=== PATIENT | female | born 1945 | race Caucasian/White ===

== ENCOUNTER 2020-01-11 08:48 | Outpatient (CLI) | payer MEDICARE, SELFPAY ==
--- NOTE | 2020-01-11 08:55 | XR_ITS ---
WS: [id number] Bone mineral density performed on a Vadio IDXA, 01/11/2020 Clinical data: POST MENOPAUSAL Comparison: DEXA scan, 03/20/2013. Findings: The first 4 lumbar vertebral bodies demonstrated the bone mineral density of 0.903 g/cm2 for a young adult T score of -2.3. Measurement of the left hip reveals a bone mineral density of 0.862 g/cm2 with a young adult T score of -1.2. Measurement of the right hip reveals the bone mineral density of 0.842 g/cm2 for young adult T score of -1.3. XR/XR DEXA axial skeleton* [id number] Impression: 1. Osteopenia of the lumbar spine with slight decrease in bone mineral density compared to prior study. 2. Osteopenia of both hips with slight decrease in bone mineral density compare d to prior study.
== END 2020-01-11 08:49 | disposition home or self-care (01) ==
LOC: RADWPI 08:54
PROVIDERS: Family Provider Family Medicine; PCP Family Medicine; Visit Provider Family Medicine
DX: Z78.0 Asymptomatic menopausal state (principal); M85.88 Other specified disorders of bone density and structure, other site
CPT/HCPCS: 77080

== ENCOUNTER 2021-08-27 10:37 | Outpatient (CLI) | payer MEDICARE, SELFPAY ==
--- NOTE | 2021-08-27 10:48 | MM_ITS ---
WS: [id number] BILATERAL SCREENING DIGITAL BREAST TOMOSYNTHESIS MAMMOGRAM WITH CAD HISTORY: SCREENING COMPARISON: None available. Bilateral CC and MLO views with tomosynthesis and synthetic mammography submitted. Computer aided det ection analyzed. Breast composition: The breasts are heterogeneously dense, which may obscure small masses. No suspici ous masses, microcalcifications or architectural distortion. Benign coarse calcification lateral LEFT breast. MM/[id number] IMPRESSION: BI-RADS: 2-Benign FOLLOW UP: 1 Year Follow-up
== END 2021-08-27 10:38 | disposition home or self-care (01) ==
PROVIDERS: PCP Family Medicine; Visit Provider Family Medicine
DX: Z12.31 Encounter for screening mammogram for malignant neoplasm of breast (principal)
CPT/HCPCS: 77063; 77067

== ENCOUNTER 2022-10-21 08:55 | Outpatient (CLI) | payer MEDICARE, SELFPAY ==
--- NOTE | 2022-10-21 09:11 | MM_ITS ---
WS: [id number] Bilateral screening 3D tomosynthesis digital mammogram, 10/21/2022 Clinical Data: SCREENING Comparison: 08/27/2021 06/07/2018, 05/25/2017, 04/13/2016, 03/20/2013, 01/07/2009. Findings: The breast parenchymal pattern shows heterogeneous density. No spiculated masses or clustered calcifi cations are seen. There are no secondary signs of carcinoma. MM/[id number] Impression: 1. Negative bilateral mammogram unchanged. 2. Recommend annual screening mammograms. BIRADS: 1-Negative FOLLOW UP: 1 Year Follow-up The CAD process checker was used.
== END 2022-10-21 08:56 | disposition home or self-care (01) ==
LOC: RAD 09:00
PROVIDERS: PCP Family Medicine; Visit Provider Family Medicine
DX: Z12.31 Encounter for screening mammogram for malignant neoplasm of breast (principal)
CPT/HCPCS: 77063; 77067

== ENCOUNTER 2024-05-13 11:54 | Emergency (ER) | payer MEDICARE, SELFPAY ==
[2024-05-13 11:59] VITALS: BP 142/80; PULSE 99; RESP 14; TEMP 36.4; O2SAT 95; BMI 28.7
--- NOTE | 2024-05-13 13:01 | ED_ITS ---
HPI - Extremity Problem 2 General: Chief complaint: Extremity Problem,Nontraumatic Stated complaint: pain & numbness in pointer finger on lft hand Time Seen by Provider: 05/13/24 13:01 History of Present Illness: 78-year-old female comes in today with d iscoloration of the fingers of both hands. Patient's pointer finger of the left hand seems to be the worst. Patient reports for the last week she has had increasing discoloration with blurriness. Patient has had some numbness and tingling in the fingers also. Patient has some osteoarthritis history, and high cholesterol history. Patient does take statins daily. Patient denies any other routine medications. Patient had a brown recluse bite about 2 months ago. Patient did have a steroid shot on Tuesday in the right shoulder for some pain and concern for a bursitis. Patient appears healthy. Related Data Previous Rx's Medication Instructions Recorded aspirin 81 mg tablet,delayed 81 mg PO DAILY #30 tabs 05/13/24 release nifedipine 30 mg tablet,extended 30 mg PO DAILY #30 tabs 05/13/24 release Allergies Allergy/AdvReac Type Severity Reaction Status Date / Time codeine Allergy ADR-Vomitin Verified 05/13/24 12:04 g Review of Systems 2 General: Reports: 10 or more systems reviewed and unremarkable except in HPI and below Skin/Breast: Reports: other (Fingertip discoloration) Physical Exam 2 Const: COMMON NORMALS: alert HENMT: COMMON NORMALS: normocephalic HEAD & SCALP: normocephalic Neck/C-Spine: COMMON NORMALS: full ROM Resp: COMMON NORMALS: normal respiratory effort Cardio: COMMON NORMALS: regular rate RATE: regular rate GI: COMMON NORMALS: Soft to palpation PALPATION: Yes Soft to palpation Back/Pelvis: COMMON NORMALS: thoracic and lumbar spine normal to inspection Extremity: COMMON NORMALS: full ROM Neuro: SENSORIUM/ORIENTATION: Yes alert Skin: COMMON NORMALS: turgor normal GENERAL SKIN EXAM: turgor normal Course 2 Vital Signs: Vital signs: Vital Signs Temperature 97.6 F 05/13/24 11:59 Pulse Rate 99 05/13/24 11:59 Respiratory Rate 14 05/13/24 11:59 Blood Pressure 142/80 05/13/24 11:59 Pulse Oximetry 95 05/13/24 11:59 Oxygen Delivery Me thod Room Air 05/13/24 11:59 MDM - Extremity (Nontraumatic) Medical Decision Making 78-year-old female comes in today for some numbness and discoloration of the fingertips. Patient had first been seen at urgent care and they referred her to ER for possible ultrasound. On exam we note some discoloration to multiple fingers with the worst 1 being the left index finger. Patient appears nontoxic. Patient appears in no pain. Differential diagnosis includes but not limited to Buerger's disease, Raynaud's phenomenon, vasculitis. CBC was unremarkable. Sed rate was less than 3. CMP and CRP were unremarkable. Coagulation panel was normal. 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 Patient will be started on some nifedipine 30 mg extended release daily and a baby aspirin. 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 Recommended following up with rheumatology and primary care for further evaluation. Patient is agreeable to plan and recommendations. Lab Data 05/13/24 14:03 05/13/24 14:03 Laboratory Results WBC 9.68 10^3/uL (3.29-11.43) 05/13/24 14:03 RBC 4.76 10^6/uL (3.85-5.65) 05/13/24 14:03 Hgb 14.50 g/dL (11.27-16.99) 05/13/24 14:03 Hct 44.4 % (36-47) 05/13/24 14:03 MCV 93.3 fl (85-98) 05/13/24 14:03 MCH 30.5 pg (27-33) 05/13/24 14:03 MCHC 32.7 g/dL (30-55) 05/13/24 14:03 RDW 13.1 % (12.1-15.1) 05/13/24 14:03 Plt Count 212 10^3/cmm (157-399) 05/13/24 14:03 MPV 10.7 fL (7.4-10.4) H 05/13/24 14:03 Neut % (Auto) 79.3 % 05/13/24 14:03 Lymph % (Auto) 11.4 % 05/13/24 14:03 Cuming % (Auto) 7.1 % 05/13/24 14:03 Eos % (Auto) 1.2 % 05/13/24 14:03 Baso % (Auto) 0.6 % 05/13/24 14:03 Neut # (Auto) 7.67 10^3/uL (1.8-7.7) 05/13/24 14:03 Lymph # (Auto) 1.1 10^3/uL (0.8-4.8) 05/13/24 14:03 Cuming # (Auto) 0.7 10^3/uL (0.2-0.9) 05/13/24 14:03 Eos # (Auto) 0.1 10^3/uL (0.0-0.8) 05/13/24 14:03 Baso # (Auto) 0.1 10^3/uL (0.0-0.1) 05/13/24 14:03 Nucleated RBC % (auto) 0 % 05/13/24 14:03 Nucleated RBCs # 0.0 /100WBC 05/13/24 14:03 ESR 3 mm/hr (0-15) 05/13/24 14:03 PT 13.30 SECONDS (12.1-14.9) 05/13/24 14:03 INR 0.94 (0.8-1.2) 05/13/24 14:03 APTT 26.0 SECONDS (23.9-36.7) 05/13/24 14:03 Sodium 140 mmol/L (136-145) 05/13/24 14:03 Potassium 4.3 mmol/L (3.5-5.1) 05/13/24 14:03 Chloride 104 mmol/L (98-107) 05/13/24 14:03 Carbon Dioxide 25 mmol/L (22-29) 05/13/24 14:03 Anion Gap 15.3 (5-19) 05/13/24 14:03 BUN 22 mg/dL (8-23) 05/13/24 14:03 Creatinine 0.5 mg/dL (0.5-0.9) 05/13/24 14:03 GFR Calculation Not Reportable 05/13/24 14:03 Glucose 99 mg/dL (65-115) 05/13/24 14:03 Calculated Osmolality 293 mOsm/kg (285-295) 05/13/24 14:03 Calcium 8.8 mg/dL (8.5-10.5) 05/13/24 14:03 Total Bilirubin 1.7 mg/dL (0.15-1.2) H 05/13/24 14:03 AST 19 U/L (0-32) 05/13/24 14:03 ALT 14 U/L (0-33) 05/13/24 14:03 Alkaline Phosphatase 87 U/L (35-105) 05/13/24 14:03 C-Reactive Protein 18.9 mg/L (0.0-4.9) H 05/13/24 14:03 Total Protein 6.3 g/dL (6.6-8.7) L 05/13/24 14:03 Albumin 3.8 g/dL (3.5-5.2) 05/13/24 14:03 Globulin 2.5 g/dL (1.3-4.6) 05/13/24 14:03 TSH 3.51 uIU/mL (0.27-4.20) 05/13/24 14:03 No radiology studies performed this visit Discharge Plan Discharge Patient Disposition: Home Clinical Impression: Raynaud phenomenon Qualifiers: Raynaud?s-associated gangrene presence: without gangrene Qualified Code(s): I 73.00 - Raynaud's syndrome without gangrene Condition: Stable Prescriptions: New nifedipine 30 mg tablet extended release 30 mg PO DAILY Qty: 30 0RF aspirin 81 mg tablet,delayed release (DR/EC) 81 mg PO DAILY Qty: 30 0RF Discharge Orders: Discharge ED (Routine); Ordered 05/13/24 Ordered By: Josemanuel Cooper Referrals: Brodie Schmitz MD [Physician] - (call for appointment) Willi Olsen MD [Primary Care Provider] - Patient Instructions: Raynaud Disease (ED) Activity Restrictions/Additional Instructions: Follow-up with primary care in 3 to 5 days for recheck. Contact the cart driver office for appointment. Return to ED for new concerns such as redness, high fever, or ulcers of the tissue. Avoid lifting heavy objects or extreme cold of the fingers. Keep hands as warm as possible along with the rest of the body. Coding Level of Care Code ED Pipe Fitter Marine for Aria Fragoso
[2024-05-13 14:10] LABS: Basophils # 0.1 10^3/uL (0.0-0.1); Basophils % 0.6 %; Eosinophils # 0.1 10^3/uL (0.0-0.8); Eosinophils % 1.2 %; Hematocrit 44.4 % (36-47); Lymphocytes # 1.1 10^3/uL (0.8-4.8); Lymphocytes % 11.4 %; Mean Corpuscular HGB Conc 32.7 g/dL (30-55); Mean Corpuscular Hemoglobin 30.5 pg (27-33); Mean Corpuscular Volume 93.3 fl (85-98); Mean Platelet Volume 10.7 fL (7.4-10.4); Monocytes # 0.7 10^3/uL (0.2-0.9); Monocytes % 7.1 %; Neutrophils # 7.67 10^3/uL (1.8-7.7); Neutrophils % 79.3 %; Nucleated Red Blood Cells % 0 %; Platelet Count 212 10^3/cmm (157-399); Red Blood Count 4.76 10^6/uL (3.85-5.65); Red Cell Distribution Width 13.1 % (12.1-15.1); White Blood Count 9.68 10^3/uL (3.29-11.43)
[2024-05-13 14:17] LABS: Erythrocyte Sedimentation Rate 3 mm/hr (0-15)
[2024-05-13 14:19] LABS: INR 0.94 (0.8-1.2)
[2024-05-13 14:36] LABS: Alanine Aminotransferase 14 U/L (0-33); Albumin Level 3.8 g/dL (3.5-5.2); Alkaline Phosphatase 87 U/L (35-105); Anion Gap 15.3 (5-19); Aspartate Amino Transferase 19 U/L (0-32); Blood Urea Nitrogen 22 mg/dL (8-23); C Reactive Protein 18.9 mg/L (0.0-4.9); Calcium 8.8 mg/dL (8.5-10.5); Carbon Dioxide 25 mmol/L (22-29); Chloride 104 mmol/L (98-107); Creatinine Clr Calc Pharmacy 57.4532; Globulin 2.5 g/dL (1.3-4.6); Glucose 99 mg/dL (65-115); Osmolality Calculated 293 mOsm/kg (285-295); Potassium 4.3 mmol/L (3.5-5.1); Sodium 140 mmol/L (136-145); Thyroid Stimulating Hormone 3.51 uIU/mL (0.27-4.20); Total Bilirubin 1.7 mg/dL (0.15-1.2); Total Protein 6.3 g/dL (6.6-8.7)
[2024-05-13] MEDS: NIFEdipine ER (24 hr) 30 mg Tablet PO (15:18)
[2024-05-13] MEDS: aspirin 81 mg Chew Tablet PO (15:18)
[2024-05-13 15:22] VITALS: BP 128/80; PULSE 77; O2SAT 96
--- NOTE | 2024-05-14 07:35 | DCPLANNER ---
messaged rheumotology for er f/u
== END 2024-05-13 15:23 | disposition home or self-care (01) ==
PROVIDERS: Emergency Provider Nurse Practitioner Family; PCP Family Medicine
DX: I73.00 Raynaud's syndrome without gangrene (principal); Z79.82 Long term (current) use of aspirin
CPT/HCPCS: 36415; 80053; 84443; 85025; 85610; 85651; 85730; 86140; 99283

== ENCOUNTER 2024-05-31 14:43 | Inpatient (IN) | payer OTHER, SELFPAY ==
[2024-05-31] VITALS (19 sets, daily range): BP systolic 98–145; BP diastolic 62–85; PULSE 87–145; RESP 20–23; TEMP 36.6–37.7; O2SAT 85–95; BMI 28.3
--- NOTE | 2024-05-31 14:48 | ECG_ITS ---
[facility] Date: 2024-[facility]31 Pat Name: Cyndi Robin Department: Room: Gender: Female [employer] Agent: : 1945 Requested By: Radha Carver Order Number: [id number] Osei MD: Raleigh Khan M.D. Measurements Intervals [place] Rate: 137 P: 53 NV: 169 QRS: 9 QRSD: 81 T: 34 QT: 262 QTc: 396 Interpretive Statements SINUS TACHYCARDIA No previous ECG available for comparison Electronically Signed On 05-31-2024 17:49:38 RELIGIOUS EDUCATION DIRECTOR by Raleigh Khan M.D. [email or web address] [id number]
--- NOTE | 2024-05-31 14:48 | XR_ITS ---
WS: [id number] Exam: XR chest 1V portable [id number] Date/Time of Exam: 05/31/2024 3:00 PM Reason For Exam: Shortness of breath No priors. Bilateral perihilar infiltrates in the medial lung zones. There is also probably infiltrate in the LEFT lower lobe in the retrocardiac region. The lungs are fully inflated. No pleural effusions. Normal bony structures. The mediastinum is normal in contour. Normal heart size. XR/XR chest 1V portable [id number] IMPRESSION: 1. Bilateral perihilar and LEFT lower lobe infiltrates noted. These changes cou ld be chronic or represent pneumonia or pulmonary edema. No comparison studies.
--- NOTE | 2024-05-31 14:55 | W.ED.SOB ---
HPI - SOB/Dyspnea General: Chief Complaint: Shortness of Breath/Dyspnea Stated Complaint: flu like symptoms, SOB Time Seen by Provider: 05/31/24 14:44 History of Present Illness: HPI Narrative: 78-year-old female with a history of hyperlipidemia and recently diagnosed with flu and pneumonia who presents emergency room with worsening cough and shortness of breath. Her was going to take her to the emergency room but they ended up calling ambulance because she was too short of breath to get to the car. EMS reports O2 sats in the low 80s on their presentation but she does have Raynaud's. She is a bit tachycardic on presentation. Related Data Home Medications ?Medication ?Instructions ?Recorded ?Confirmed amoxicillin 875 mg-potassium 1 tab PO Q12H 05/31/24 05/31/24 clavulanate 125 mg tablet atorvastatin 10 mg tablet 10 mg PO DAILY 05/31/24 05/31/24 benzonatate 100 mg capsule 100 mg PO TID 05/31/24 05/31/24 Previous Rx's ?Medication ?Instructions ?Recorded aspirin 81 mg tablet,delayed 81 mg PO DAILY #30 tabs 05/13/24 release nifedipine 30 mg tablet,extended 30 mg PO DAILY #30 tabs 05/13/24 release Allergies Allergy/AdvReac Type Severity Reaction Status Date / Time codeine Allergy ADR-Vomitin Verified 05/31/24 15:01 g Review of Systems Narrative: Constitutional symptoms: Negative except as documented in HPI. Skin symptoms: Negative except as documented in HPI. Eye symptoms: Negative except as documented in HPI. ENMT symptoms: Negative except as documented in HPI. Respiratory symptoms: Negative except as documented in HPI. Cardiovascular symptoms: Negative except as documented in HPI. Gastrointestinal symptoms: Negative except as documented in HPI. Genitourinary symptoms: Negative except as documented in HPI. Musculoskeletal symptoms: Negative except as documented in HPI. Neurologic symptoms: Negative except as documented in HPI. Psychiatric symptoms: Negative except as documented in HPI. Endocrine symptoms: Negative except as documented in HPI. [facility] ED PFSH: Medical History Raynaud's disease History of hypertension Social History (Updated 05/31/24 @ 17:33 by Hermann Santoyo MD) Smoking and tobacco/nicotine status: never used tobacco/nicotine Alcohol intake: never Substance/Drug Use: never Physical Exam Narrative: EXAM NARRATIVE: General: Alert, no acute distress. Skin: Warm, dry. Head: Normocephalic, bruising which appears quite old around the right eye. Yellowing.. Neck: Supple, trachea midline. Eye: Extraocular movements are intact. Ears, nose, mouth and throat: Tacky oral mucosa Cardiovascular: Regular, tachycardic, normal peripheral perfusion. Respiratory: Mild increased work of breathing, mild tachypnea. No obvious wheezing. Gastrointestinal: Soft, Nontender, Non distended Musculoskeletal: Normal ROM, no deformity. Neurological: Alert and oriented, No focal neurological deficit observed. Psychiatric: Cooperative, appropriate mood & affect. Course Vital Signs: Vital signs: Vital Signs Temperature 99.8 F H 05/31/24 14:57 Pulse Rate 114 H 05/31/24 18:00 Respiratory Rate 20 H 05/31/24 14:57 Blood Pressure 113/72 05/31/24 18:00 Pulse Oximetry 94 05/31/24 18:00 Oxygen Delivery Me thod Nasal Cannula 05/31/24 18:00 Oxygen Flow Rate 2 05/31/24 18:00 MDM - SOB/Dyspnea Medical Decision Making Differential diagnosis for patient with shortness of breath includes but is not limited to and based on the above HPI, review of systems and physical exam: Pneumonia. Bronchitis. Asthma or COPD with acute exacerbation. Acute coronary syndrome / CT. Pulmonary embolism. Anxiety. Congestive heart failure. Viral infections including influenza and Covid-19. Atrial fibrillation. Anxiety. Pleural effusion. Pneumothorax. Orders placed to evaluate differential diagnosis based on the above differential, HPI and physical exam EKG: Time 1458. Rate 137. Sinus tachycardia, No ST-T changes, no ectopy, normal DE & QRS intervals, This was reviewed and interpreted by myself the ER physician at 1502. Chest x-ray: Bilateral perihilar and left lower lobe infiltrates. This is likely a pneumonia which this far out from flu is likely a secondary bacterial pneumonia. This was reviewed and interpreted by myself the emergency room physician. I also reviewed the radiology report. Lab Review: Laboratory results were reviewed and interpreted by myself the emergency room physician. Mild leukocytosis white count of almost 13,000. No anemia. No renal failure. Although her BUN is slightly elevated. Initial troponin is mildly elevated proBNP is negative. I reviewed the patient's medical record. Reexamination: Patient continues to require a couple liters nasal cannula. O2 sats are in the low 90s on this. Heart rate is come down somewhat. No altered mental status. No focal motor deficits. Consultation: I spoke with Dr. Santoyo who is on-call for the hospitalist service who agrees to admission. Assessment and plan: Pneumonia Sepsis Tachycardia Dehydration Fever -2 L normal saline bolus. Fluid volumes based on ideal body weight. -Broad-spectrum antibiotics were administered. -Sepsis quality measures. -Lactic acid with a reflex was ordered. -Blood cultures were ordered. -I discussed the patient with the hospitalist on-call who is admitting the patient. - Discussed findings and plan with patient. Answered any questions. - All laboratory values were reviewed and interpreted personally by myself, the ER physician - All imaging was reviewed and interpreted personally by myself, the ER physician. - Evaluation and treatment of this problem were appropriate in the emergency setting Critical care -I spent a total of >35 minutes of critical care time managing the patient, independent of any other practitioner. -The time involved in the performance of separately reportable procedures was not counted towards critical care time. Lab Data 05/31/24 15:16 05/31/24 15:16 Labs/Radiology: Radiology Impressions Chest X-Ray 05/31/24 14:48 IMPRESSION: 1. Bilateral perihilar and LEFT lower lobe infiltrates noted. These changes could be chronic or represent pneumonia or pulmonary edema. No comparison studies. Chest CTA 05/31/24 16:56 IMPRESSION: 1. No pulmonary emboli. 2. Patchy peripheral consolidations throughout both lungs with a lower lobe predominance which while nonspecific can be seen in the setting of viral infection. Laboratory Results WBC 12.68 10^3/uL (3.29-11.43) H 05/31/24 15:16 RBC 4.56 10^6/uL (3.85-5.65) 05/31/24 15:16 Hgb 13.70 g/dL (11.27-16.99) 05/31/24 15:16 Hct 43.6 % (36-47) 05/31/24 15:16 MCV 95.6 fl (85-98) 05/31/24 15:16 MCH 30.0 pg (27-33) 05/31/24 15:16 MCHC 31.4 g/dL (30-55) 05/31/24 15:16 RDW 13.5 % (12.1-15.1) 05/31/24 15:16 Plt Count 343 10^3/cmm (157-399) 05/31/24 15:16 MPV 10.0 fL (7.4-10.4) 05/31/24 15:16 Neut % (Auto) 80.7 % 05/31/24 15:16 Lymph % (Auto) 8.5 % 05/31/24 15:16 Charles % (Auto) 8.4 % 05/31/24 15:16 Eos % (Auto) 0.3 % 05/31/24 15:16 Baso % (Auto) 0.4 % 05/31/24 15:16 Neut # (Auto) 10.23 10^3/uL (1.8-7.7) H 05/31/24 15:16 Lymph # (Auto) 1.1 10^3/uL (0.8-4.8) 05/31/24 15:16 Charles # (Auto) 1.1 10^3/uL (0.2-0.9) H 05/31/24 15:16 Eos # (Auto) 0.0 10^3/uL (0.0-0.8) 05/31/24 15:16 Baso # (Auto) 0.1 10^3/uL (0.0-0.1) 05/31/24 15:16 Nucleated RBC % (auto) 0 % 05/31/24 15:16 Nucleated RBCs # 0.0 /100WBC 05/31/24 15:16 Specimen Type Arterial 05/31/24 15:02 Sample Site Radial, right 05/31/24 15:02 ABG pH 7.47 (7.35-7.45) H 05/31/24 15:02 ABG pCO2 34.4 mmHg (35-45) L 05/31/24 15:02 ABG pO2 49.7 mmHg (80.0-100.0) L 05/31/24 15:02 ABG PO2/FiO2 Ratio 207 05/31/24 15:02 ABG HCO3 25.1 mmol/L (22-26) 05/31/24 15:02 ABG O2 Saturation 86.4 05/31/24 15:02 ABG Base Excess 1.9 mmol/L (-2.0-2.0) 05/31/24 15:02 Wilber Test Pos 05/31/24 15:02 A-a O2 Gradient 10.6 mmHg (5-10) H 05/31/24 15:02 Hematocrit 41.4 % (37-47) 05/31/24 15:02 Hgb O2 Saturation 84.3 % (95-100) L 05/31/24 15:02 Carboxyhemoglobin 1.5 %THgb (0.4-20.1) 05/31/24 15:02 Methemoglobin 0.9 % (0.4-1.5) 05/31/24 15:02 Total Hemoglobin 13.5 g/dL (12-16) 05/31/24 15:02 Sodium 136.0 mmol/L (131-143) 05/31/24 15:02 Potassium 3.7 mmol/L (3.5-5.0) 05/31/24 15:02 Glucose 135.0 mg/dL (70-115) H 05/31/24 15:02 Ionized Calcium 1.2 mmol/L (1.1-1.4) 05/31/24 15:02 O2 Delivery Device Nc 05/31/24 15:02 O2 Liters/Min 1.0 % 05/31/24 15:02 FiO2 24.0 % 05/31/24 15:02 Packer And Carry Out ID Anonymous 05/31/24 15:02 Sodium 139 mmol/L (136-145) 05/31/24 15:16 Potassium 4.2 mmol/L (3.5-5.1) 05/31/24 15:16 Chloride 101 mmol/L (98-107) 05/31/24 15:16 Carbon Dioxide 25 mmol/L (22-29) 05/31/24 15:16 Anion Gap 17.2 (5-19) 05/31/24 15:16 BUN 19 mg/dL (8-23) 05/31/24 15:16 Creatinine 0.5 mg/dL (0.5-0.9) 05/31/24 15:16 GFR Calculation Not Reportable 05/31/24 15:16 Glucose 125 mg/dL (65-115) H 05/31/24 15:16 Calculated Osmolality 292 mOsm/kg (285-295) 05/31/24 15:16 Lactic Acid 2.5 mmol/L (0.5-2.2) H 05/31/24 15:16 Calcium 8.4 mg/dL (8.5-10.5) L 05/31/24 15:16 Total Bilirubin 1.1 mg/dL (0.15-1.2) 05/31/24 15:16 AST 145 U/L (0-32) H 05/31/24 15:16 ALT 130 U/L (0-33) H 05/31/24 15:16 Alkaline Phosphatase 165 U/L (35-105) H 05/31/24 15:16 Troponin T Baseline 35 ng/L (0-10) H 05/31/24 15:16 C-Reactive Protein 122.3 mg/L (0.0-4.9) H 05/31/24 15:16 NT-Pro-B Natriuret Pep 112 pg/mL (0-450) 05/31/24 15:16 Total Protein 5.9 g/dL (6.6-8.7) L 05/31/24 15:16 Albumin 3.2 g/dL (3.5-5.2) L 05/31/24 15:16 Globulin 2.7 g/dL (1.3-4.6) 05/31/24 15:16 Procalcitonin 0.10 ng/mL (0-0.5) 05/31/24 15:16 TSH 5.21 uIU/mL (0.27-4.20) H 05/31/24 15:16 All radiology interpretation(s) finalized by discharge Discharge Plan Discharge Patient Disposition: Admitted As Inpatient Clinical Impression: Pneumonia, Sepsis, Hypoxemia, Dehydration Condition: Stable Coding Level of Care Code ED Hot Car Charger for Aria Fragoso
[2024-05-31 15:14] LABS: ABG PCO2 34.4 mmHg (35-45); ABG PH Result 7.47 (7.35-7.45); Alveolar-Arterial Oxygen Gradi 10.6 mmHg (5-10); Arterial Blood Gas Hematocrit 41.4 % (37-47); Base Excess ABG 1.9 mmol/L (-2.0-2.0); Blood Gas Allen Test Pos; Blood Gas Operator Identificat Anonymous; Blood Gas Sample Site Radial, right; Blood Gas Sample Type Arterial; Carboxyhemoglobin 1.5 %THgb (0.4-20.1); HCO3 ABG 25.1 mmol/L (22-26); HGB O2 Sat 84.3 % (95-100); Ionized Calcium Level - ABG 1.2 mmol/L (1.1-1.4); Methemoglobin 0.9 % (0.4-1.5); Oxygen Device NC; Oxygen Saturation ABG 86.4; PO2 ABG 49.7 mmHg (80.0-100.0); PO2 FiO2 Ratio Arterial Blood 207; Potassium Level - ABG 3.7 mmol/L (3.5-5.0); Total Hemoglobin 13.5 g/dL (12-16)
[2024-05-31] MEDS: acetaminophen 1,000 MG/100 ML PIGGYBACK 400 MG IV (15:28)
[2024-05-31 15:49] LABS: Basophils # 0.1 10^3/uL (0.0-0.1); Basophils % 0.4 %; Eosinophils % 0.3 %; Hematocrit 43.6 % (36-47); Lymphocytes # 1.1 10^3/uL (0.8-4.8); Lymphocytes % 8.5 %; Mean Corpuscular HGB Conc 31.4 g/dL (30-55); Mean Corpuscular Volume 95.6 fl (85-98); Monocytes # 1.1 10^3/uL (0.2-0.9); Monocytes % 8.4 %; Neutrophils # 10.23 10^3/uL (1.8-7.7); Neutrophils % 80.7 %; Nucleated Red Blood Cells % 0 %; Platelet Count 343 10^3/cmm (157-399); Red Blood Count 4.56 10^6/uL (3.85-5.65); Red Cell Distribution Width 13.5 % (12.1-15.1); White Blood Count 12.68 10^3/uL (3.29-11.43)
[2024-05-31 16:03] LABS: Lactic Sepsis W/Reflex 2.5 mmol/L (0.5-2.2)
[2024-05-31 16:05] LABS: Troponin(5th) Baseline 35 ng/L (0-10)
[2024-05-31 16:16] LABS: NT Pro B Type Natriuretic Pept 112 pg/mL (0-450); Thyroid Stimulating Hormone 5.21 uIU/mL (0.27-4.20)
[2024-05-31 16:27] LABS: Alanine Aminotransferase 130 U/L (0-33); Albumin Level 3.2 g/dL (3.5-5.2); Alkaline Phosphatase 165 U/L (35-105); Anion Gap 17.2 (5-19); Aspartate Amino Transferase 145 U/L (0-32); Blood Urea Nitrogen 19 mg/dL (8-23); C Reactive Protein 122.3 mg/L (0.0-4.9); Calcium 8.4 mg/dL (8.5-10.5); Carbon Dioxide 25 mmol/L (22-29); Chloride 101 mmol/L (98-107); Creatinine Clr Calc Pharmacy 57.9674; Globulin 2.7 g/dL (1.3-4.6); Glucose 125 mg/dL (65-115); Osmolality Calculated 292 mOsm/kg (285-295); Potassium 4.2 mmol/L (3.5-5.1); Sodium 139 mmol/L (136-145); Total Bilirubin 1.1 mg/dL (0.15-1.2); Total Protein 5.9 g/dL (6.6-8.7)
--- NOTE | 2024-05-31 16:48 | ECG_ITS ---
[facility] Date: 2024-[facility]31 Pat Name: Cyndi Robin Department: Room: Gender: Female [employer] Insurance Agent: : 1945 Requested By: Radha Carver Order Number: [id number] Osei MD: XOCHITL RIDDLE Measurements Intervals [place] Rate: 112 P: 51 LA: 175 QRS: 6 QRSD: 86 T: 15 QT: 304 QTc: 417 Interpretive Statements SINUS TACHYCARDIA MODERATE VOLTAGE CRITERIA FOR LVH, CONSIDER NORMAL VARIANT [MEETS CRITERIA IN ONE OF: R(aVL), S(V1), R(V5), R(V5/V6)+S(V1)] ABNORMAL RHYTHM ECG Compared to ECG 05/31/2024 14:58:50 No significant changes Electronically Signed On 06-05-2024 23:54:39 SACK REPAIRER by XOCHITL RIDDLE [email or web address] [id number]
--- NOTE | 2024-05-31 16:56 | CTR_ITS ---
PROCEDURE INFORMATION: Exam: CTA Chest With Contrast Exam date and time: 05/31/2024 5:14 PM Age: 78 years old Clinical indication: Shortness of breath; Additional info: SOB TECHNIQUE: Imaging protocol: Computed tomographic angiography of the chest with contrast. Exam focused on the arteries. 3D rendering (Not supervised by radiologist): MIP and/or 3D reconstructed images were created by the technologist. Radiation optimization: All CT scans at this facility use at least one of these dose optimization techniques: automated exposure control; mA and/or kV adjustment per patient size (includes targeted exams where dose is matched to clinical indication); or iterative reconstruction. Contrast material: OMNI 350; Contrast volume: 62 ml; Contrast route: INTRAVENOUS (IV); COMPARISON: CR XR chest 1V portable [id number] 05/31/2024 3:35 PM RADIATION DOSE METRICS: Total DLP (mGy-cm): 246.96 FINDINGS: Pulmonary arteries: No pulmonary emboli. Aorta: Unremarkable. No aortic aneurysm. No aortic dissection. Lungs: Patchy peripheral consolidations throughout both lungs with a lower lobe predominance which while nonspecific can be seen in the setting of viral infection. Pleural spaces: Unremarkable. No pneumothorax. No pleural effusion. Heart: Unremarkable. No cardiomegaly. No pericardial effusion. Lymph nodes: Unremarkable. No enlarged lymph nodes. Gallbladder and biliary ducts: The gallbladder is absent. Bones/joints: Unremarkable. No acute fracture. Soft tissues: Unremarkable. CT/CT angio chest PE protcl [id number] IMPRESSION: 1. No pulmonary emboli. 2. Patchy peripheral consolidations throughout both lungs with a lower lobe predominance which while nonspecific can be seen in the setting of viral infection.
--- NOTE | 2024-05-31 17:26 | USCV_ITS ---
Cyndi Robin Age: 78 Gender: F : 1945 Exam Date: 05/31/2024 18:43 Ordering Phys: Hermann Santoyo MD Technologist: MIRELLA Exam Location: [facility] [place] Indication: sob BP: 136 / 77 HR: 101 Rhythm: Atrial fibrillation Technical Quality: Adequate MEASUREMENTS (Male / Female) Normal Values 2D ECHO LV Diastolic Diameter PLAX 3.9 cm 4.2 - 5.9 / 3.9 - 5.3 cm IVS Diastolic Thickness 1.1 cm 0.6 - 1.0 / 0.6 - 0.9 cm IVS Systolic Thickness 1.9 cm LVPW Diastolic Thickness 1.0 cm 0.6 - 1.0 / 0.6 - 0.9 cm LVPW Systolic Thickness 1.8 cm LVOT Diameter 1.8 cm LV Ejection Fraction 2D Teich 64.8 % LV Ejection Fraction MOD 4C 57.8 % LV Ejection Fraction MOD 2C 69.6 % LV Ejection Fraction 2C AL 74.0 % LA Diameter 3.9 cm Aorta at Sinotubular Diameter 2.3 cm IVC Diameter 1.7 cm M-MODE LA Ao Ratio MM 1.5 AV Cusp Separation MM 2.0 cm DOPPLER AV Peak Velocity 125.0 cm/s LVOT Peak Velocity 85.0 cm/s AV Area Cont Eq vti 1.8 cm squared AV Area Cont Eq pk 1.8 cm squared MV Peak Velocity 161.0 cm/s MV Area PHT 8.8 cm squared Mitral E to A Ratio 0.0 TR Peak Velocity 280.0 cm/s TR Peak Gradient 31.4 mmHg TV Peak E Velocity 85.0 cm/s PV Peak Velocity 92.0 cm/s FINDINGS Left Ventricle Left ventricle is normal in size. LV systolic function is normal with EF of 55-60%. No regional wall motion abnormalities are seen Right Ventricle Normal in size and function Right Atrium Normal in size Left Atrium Normal in size Mitral Valve Structurally normal mitral valve. Mild mitral regurgitation. Aortic Valve Aortic valve is thickened. No significant stenosis or regurgitation. Tricuspid Valve Mild tricuspid regurgitation. RVSP is 35-40mmHg. Mild pulmonary hypertension Pulmonic Valve Not well visualized Pericardium Normal Aorta Normal in size IVC Appears to be normal CONCLUSIONS LV systolic function is normal with EF of 55-60% Mild mitral regurgitation Mild tricuspid regurgitation Mild pulmonary hypertension No comparison studies are available. Raleigh Khan MD (Electronically Signed) Final Date: 02 June 2024 15:03 S
--- NOTE | 2024-05-31 17:29 | PM.HP ---
Providers/Chief Complaint Primary Care Provider: Willi Olsen MD Chief Complaint: flu like symptoms, SOB History of Present Illness Cyndi Robin is a 78 year old female with a past medical history of hypertension, Raynaud's phenomenon who presents [facility] due to weakness, fatigue, nausea, vomiting, diarrhea, shortness of breath, cough. Currently patient alert oriented x 3, following commands, she lives in a splint she lives with her family for the last week she has had a flulike illness, with fevers, cough, chills, fatigue, malaise, diarrhea, nausea. She saw urgent care she was diagnosed with the flu but not started on any treatment presumably as she was out of the window for treatment, started on antibiotics for possible pneumonia given cough medication. However symptomatology persisted with persistent cough, shortness of breath fatigue, malaise fevers and chills. Denies any dysuria, hematuria, no flank pain, does report lightheadedness and dizziness. She reports 2 episodes of feeling dizzy 1 episode in which she syncopized, she felt dizzy and she fell hitting her head against the ground, she has bruising around the right orbit, she does tell me that she passed out during this episode Review of Systems Const: Denies: fever(s) or chills Eyes: Denies: change in vision Card: Denies: chest pain Resp: Reports: dyspnea and non-productive cough GI: Denies: abdominal pain Neuro: Denies: headache(s), numbness in extremities or weakness in extremities Medications/Allergies Home Medications ?Medication ?Instructions ?Recorded ?Confirmed ?Last Taken ?Type aspirin 81 mg tablet,delayed 81 mg PO DAILY #30 tabs 05/13/24 05/31/24 Unknown Rx release nifedipine 30 mg tablet,extended 30 mg PO DAILY #30 tabs 05/13/24 05/31/24 Unknown Rx release amoxicillin 875 mg-potassium 1 tab PO Q12H 05/31/24 05/31/24 Unknown History clavulanate 125 mg tablet atorvastatin 10 mg tablet 10 mg PO DAILY 05/31/24 05/31/24 Unknown History benzonatate 100 mg capsule 100 mg PO TID 05/31/24 05/31/24 Unknown History Allergies Allergy/AdvReac Type Severity Reaction Status Date / Time codeine Allergy ADR-Vomitin Verified 05/31/24 15:01 g PFSH Acute PFSH: Medical History Raynaud's disease History of hypertension Social History (Updated 05/31/24 @ 17:33 by Hermann Santoyo MD) Smoking and tobacco/nicotine status: never used tobacco/nicotine Alcohol intake: never Substance/Drug Use: never Vitals/I&O/Wt Last Vital Signs Temp 99.8 F H 05/31/24 14:57 Pulse 127 H 05/31/24 15:31 Resp 20 H 05/31/24 14:57 BP 121/78 05/31/24 15:31 Pulse Ox 93 05/31/24 15:31 O2 Del Method Room Air 05/31/24 15:31 05/31/24 05/31/24 05/31/24 06:59 14:59 22:59 Intake Total 0 / 0 Balance 0 / 0 Weight last 48 hrs Weight 74.843 kg Physical Exam Const: COMMON NORMALS: no acute distress and patient oriented x3 HENMT: COMMON NORMALS: normocephalic HEAD & SCALP: normocephalic Eye: COMMON NORMALS: Equal, round and reactive pupils present and EOMs intact bilaterally OTHER: Right eye bruising of orbital Neck/C-Spine: COMMON NORMALS: no JVD Resp: COMMON NORMALS: normal respiratory effort, No retractions, No use of accessory muscles and clear to auscultation bilaterally AUSCULTATION: crackles and wheezes Cardio: COMMON NORMALS: no JVD, regular rate, regular rhythm, S1 normal heart sound present and S2 normal heart sound present RATE: regular rate RHYTHM: regular rhythm HEART SOUNDS: S1 normal heart sound present and S2 normal heart sound present GI: COMMON NORMALS: Normal to inspection, nondistended, normoactive bowel sounds present, Soft to palpation and non-tender Extremity: COMMON NORMALS: no calf tenderness and no pedal edema Neuro: COMMON NORMALS: patient oriented x3, CN's II-XII intact bilaterally and moves all extremities Psych: COMMON NORMALS: mental status grossly normal Sepsis: Is patient septic: Yes Focused sepsis exam performed: Yes Focused sepsis exam: cap refill greater than 2 seconds, no mottling, no skin changes, no cooling Date exam was performed: 02/20/25 Time exam was performed: 17:34 Data 05/31/24 15:16 05/31/24 15:16 Micro: Microbiology 05/31/24 15:21 Blood Culture - Preliminary Blood SPECIMEN COLLECTED 05/31/24 15:16 Blood Culture - Preliminary Blood SPECIMEN COLLECTED A&P Assessment and plan (1) Pneumonia: (2) Hypoxemia: (3) Sepsis: (4) Acute hypoxic respiratory failure: (5) Transaminitis: Plan Acute hypoxic respiratory failure -Secondary to pneumonia -With sepsis, sepsis features met given tachycardia, febrile, elevated lactic acid -With transaminitis Plan -Admit to ICU -Receiving septic bolus in the ER -Meropenem -Zyvox -Blood cultures -Respiratory eval, -CT angiogram the chest -DuoNeb -Full code -Lovenox for DVT prophylaxis Syncopal episode -CT head -Carotid artery ultrasound -Cardiac echo -Telemetry monitoring Transaminitis, monitor LFTs, acute hep panel Sepsis secondary to pneumonia as above PDMP PDMP Reviewed: Not Reviewed Attestations Medical Necessity Statement*: Patient requires hospitalization, inpatient, greater than 2 midnights for acute hypoxic respiratory failure secondary to pneumonia, sepsis Diagnoses Pneumonia J18.9 Hypoxemia R09.02 Sepsis A41.9 Acute hypoxic respiratory failure J96.01 Transaminitis R74.01
[2024-05-31 17:30] LABS: Reflex Lactate Order REFLEX LACTIC ORDERD
--- NOTE | 2024-05-31 17:31 | USR_ITS ---
PROCEDURE INFORMATION: Exam: US Duplex Bilateral Extracranial Arteries; Complete; Carotid Arteries Exam date and time: 05/31/2024 5:42 PM Age: 78 years old Clinical indication: Syncope and collapse TECHNIQUE: Imaging protocol: Real-time duplex ultrasound scan of the bilateral extracranial arteries combining white scale, color Doppler and spectral waveform analysis with image documentation. Complete exam. Exam focused on the carotid arteries. Total images: 1003 COMPARISON: CT angio chest PE protcl [id number] 05/31/2024 5:14 PM FINDINGS: Doppler ultrasound velocity measurements are given this peak systolic velocity, and diastolic velocity, in cm/s: Right common carotid artery: 106, 30 Right internal carotid artery: 76, 23 Right ICA/CCA ratio: 0.7 Right external carotid artery: 77, 10 Right vertebral artery: Antegrade. A small amount of plaque identified in the proximal right internal carotid artery. Left common carotid artery: 78, 22 Left internal carotid artery: 64, 20 Left ICA/CCA ratio: 0.8 Left external carotid artery: 84, 9 Left vertebral artery: Antegrade. Small amount of plaque identified in the distal left common carotid artery. Also noted, but incompletely assessed a left thyroid nodule of estimated 1.6 cm size recommend follow-up with thyroid ultrasound. US/CV carotid duplex BI* [id number] IMPRESSION: 1. Less than 50% stenosis identified in the right internal carotid artery. 2. Less than 50% stenosis in the left internal carotid artery. 3. Bilateral antegrade flow in the bilateral vertebral arteries. 4. Suspected 1.6 cm left thyroid nodule recommend follow-up with non emergent thyroid ultrasound. REFERENCES: SRU CRITERIA. The degree of internal carotid artery stenosis is based on criteria defined by the Society of Radiologists in Ultrasound (SRU). Normal is no stenosis. Mild is less than 50% stenosis. Moderate is 50-69% stenosis. Severe is greater than 69% stenosis to near occlusion. Near occlusion is a markedly narrowed lumen. Total occlusion is no detectable patent lumen.
[2024-05-31] MEDS: iohexol 350 mg/mL 500 mL Btl (per mL) IV (17:38)
--- NOTE | 2024-05-31 18:05 | PC.NURSE ---
PT placed on 2L NC to maintain o2 sats. Dr. Chan.
[2024-05-31] MEDS: sodium chloride 0.9% 1,000 ML 999 ML IV ×2 (18:15→18:29)
[2024-05-31] MEDS: meropenem 500 mg SDV IVP (18:18)
[2024-05-31] MEDS: linezolid premix 600 MG/300 ML PREMIX 300 MG IV (18:23)
[2024-05-31 18:30] LABS: D Dimer 5.33 ug/mLFEU (0-0.59)
[2024-05-31 18:58] LABS: Lactic Acid level (Lactate) 1.6 mmol/L (0.5-2.2)
[2024-05-31 18:59] LABS: Troponin 5 2HR 28.08 ng/L (0-10); Troponin 5 2HR Delta -6.92 ABS# (0-10)
[2024-05-31 19:17] LABS: Influenza A NEGATIVE (Negative); Influenza B NEGATIVE (Negative); Respiratory Syncytial Virus Ce NEGATIVE (Negative); SARS-CoV-2 PCR NEGATIVE (Negative)
[2024-05-31 19:28] LABS: C Reactive Protein 109.9 mg/L (0.0-4.9)
[2024-05-31 20:29] LABS: Estmated Average Glucose 117; Hemoglobin A1C 5.7 % (4.0-6.0)
--- NOTE | 2024-05-31 20:48 | ECG_ITS ---
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1945 Requested By: Radha Carver Order Number: [id number] Osei MD: XOCHITL RIDDLE Measurements Intervals [place] Rate: 96 P: 42 CT: 222 QRS: 1 QRSD: 89 T: 18 QT: 337 QTc: 426 Interpretive Statements SINUS RHYTHM WITH FIRST DEGREE AV BLOCK MODERATE VOLTAGE CRITERIA FOR LVH, CONSIDER NORMAL VARIANT [MEETS CRITERIA IN ONE OF: R(aVL), S(V1), R(V5), R(V5/V6)+S(V1)] Compared to ECG 05/31/2024 16:54:29 First degree AV block now present Sinus tachycardia no longer present Electronically Signed On 06-05-2024 23:54:16 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
[2024-05-31 21:36] LABS: Troponin 5 6HR 26.29 ng/L (0-10)
[2024-05-31 21:38] LABS: Troponin 5 6HR Delta -8.71 ng/L (0-12)
[2024-05-31] MEDS: pantoprazole 40 mg SDV IVP (22:01)
--- NOTE | 2024-05-31 23:30 | CTR_ITS ---
PROCEDURE INFORMATION: Exam: CT Head Without Contrast Exam date and time: 05/31/2024 11:56 PM Age: 78 years old Clinical indication: Injury or trauma; Fall; Blunt trauma (contusions or hematomas) TECHNIQUE: Imaging protocol: Computed tomography of the head without contrast. Radiation optimization: All CT scans at this facility use at least one of these dose optimization techniques: automated exposure control; mA and/or kV adjustment per patient size (includes targeted exams where dose is matched to clinical indication); or iterative reconstruction. COMPARISON: US CV carotid duplex BI* [id number] 05/31/2024 5:42 PM RADIATION DOSE METRICS: Total DLP (mGy-cm): 1088.68 FINDINGS: Brain: No acute intracranial abnormality. Subcortical and periventricular white matter changes consistent with small-vessel ischemic disease in the appropriate clinical setting. Small-vessel ischemic disease. Cerebral ventricles: No ventriculomegaly. Paranasal sinuses: Visualized sinuses are unremarkable. No fluid levels. Mastoid air cells: Visualized mastoid air cells are well aerated. Bones: Unremarkable. No acute fracture. Soft tissues: Unremarkable. CT/CT head wo con* [id number] IMPRESSION: 1. No acute intracranial abnormality. 2. Small-vessel ischemic disease.
[2024-06-01] VITALS (31 sets, daily range): BP systolic 115–160; BP diastolic 66–100; PULSE 78–127; RESP 16–29; TEMP 36.4–37.1; O2SAT 89–96
[2024-06-01] MEDS: acetaminophen 325 mg Tablet 650 MG PO (00:12)
[2024-06-01] MEDS: meropenem 500 mg SDV IVP ×2 (01:33→09:50)
[2024-06-01] MEDS: linezolid premix 600 MG/300 ML PREMIX 300 MG IV ×2 (03:24→17:10)
[2024-06-01 04:13] LABS: Basophils % 0.2 %; Eosinophils % 0.4 %; Hematocrit 37.8 % (36-47); Lymphocytes # 0.6 10^3/uL (0.8-4.8); Mean Corpuscular Hemoglobin 29.9 pg (27-33); Mean Corpuscular Volume 93.3 fl (85-98); Mean Platelet Volume 10.4 fL (7.4-10.4); Monocytes # 0.4 10^3/uL (0.2-0.9); Monocytes % 4.8 %; Neutrophils # 7.19 10^3/uL (1.8-7.7); Neutrophils % 85.9 %; Nucleated Red Blood Cells % 0 %; Platelet Count 278 10^3/cmm (157-399); Red Blood Count 4.05 10^6/uL (3.85-5.65); Red Cell Distribution Width 13.2 % (12.1-15.1); White Blood Count 8.37 10^3/uL (3.29-11.43)
[2024-06-01 04:22] LABS: INR 1.05 (0.8-1.2)
[2024-06-01 04:36] LABS: Alanine Aminotransferase 132 U/L (0-33); Albumin Level 2.8 g/dL (3.5-5.2); Alkaline Phosphatase 145 U/L (35-105); Anion Gap 14.7 (5-19); Aspartate Amino Transferase 119 U/L (0-32); Blood Urea Nitrogen 19 mg/dL (8-23); Carbon Dioxide 23 mmol/L (22-29); Chloride 105 mmol/L (98-107); Creatinine Clr Calc Pharmacy 57.0822; Globulin 2.5 g/dL (1.3-4.6); Glucose 176 mg/dL (65-115); Magnesium 1.9 mg/dL (1.7-2.3); Osmolality Calculated 293 mOsm/kg (285-295); Phosphorus 3.2 mg/dL (2.5-4.5); Potassium 4.7 mmol/L (3.5-5.1); Sodium 138 mmol/L (136-145); Total Bilirubin 0.6 mg/dL (0.15-1.2); Total Protein 5.3 g/dL (6.6-8.7)
[2024-06-01 04:38] LABS: NT Pro B Type Natriuretic Pept 328 pg/mL (0-450)
[2024-06-01] MEDS: enoxaparin 40 mg/0.4 mL Syringe SUBCUT (06:23)
[2024-06-01 07:51] LABS: Bilirubin Urine Negative (Negative); Blood Urine Negative (Negative); Glucose Urine UA Negative (Normal); Ketones Urine Negative (Negative); Leukocyte Esterase Urine Negative (Negative); Nitrate Urine Negative (Negative); Protein Urine 1+ (Negative); Urine Appearance Clear (CLEAR); Urine Color Yellow (Yellow); Urobilinogen Urine 0.2 mg/dL (Negative); pH Urine 5.5 (5-7)
[2024-06-01 08:12] LABS: Add Urine Microscopic? YES; Bacteria Urine 1+ /hpf; Hyaline Casts Urine 0-4 /lpf; RBC Urine 0-4 /hpf (0-2); Specific Gravity, Urine 1.036 (1.005-1.030); Squamous Epithelial Cell Urine 0-4 /hpf (0-5); UA Manual Slide Review YES; UA Slide Review UA Slide Review Perf; WBC Urine 0-4 /hpf (0-5)
--- NOTE | 2024-06-01 08:19 | US_ITS ---
WS: [id number] RIGHT UPPER QUADRANT ULTRASOUND HISTORY: liver and gallbadder COMPARISON: 09/09/2022 Liver: 12.8 cm in length. Normal size liver and echogenicity. No bile duct dilatation or mass. Portal Vein: Normal hepatopetal flow with monophasic waveform. Gallbladder: Prior cholecystectomy. CBD: 0.5 cm Pancreas: Completely obscured by bowel gas. Right kidney: 9.0 cm in length. Normal size and echogenicity. No hydronephrosis or mass. Aorta and IVC: Limited. No ascites. US/US abdomen limited [id number] IMPRESSION: 1. Technically difficult RIGHT upper quadrant ultrasound. 2. Prior cholecystectomy. 3. No hepatobiliary dilatation. 4. Negative liver.
[2024-06-01 09:04] LABS: Hepatitis A Antibody IgM Non-Reactive (Nonreactive); Hepatitis B Core IgM Non-Reactive (Nonreactive); Hepatitis B Surface Antigen Non-Reactive (Nonreactive); Hepatitis C Virus Antibody Non-Reactive (Nonreactive)
[2024-06-01] MEDS: aspirin 81 mg EC Tablet PO (09:50)
[2024-06-01] MEDS: albuterol 2.5 mg/3 mL Neb INHALATION ×4 (11:29→23:34)
--- NOTE | 2024-06-01 14:46 | P.PN_ITS ---
Subjective 2 Subjective: Patient was seen this morning, family member at bedside, denies any fevers, does have a cough, reports fatigue, malaise, Vitals/I&O/Wt Last Vital Signs Temp 98.5 F 06/01/24 08:00 Pulse 101 H 06/01/24 13:00 Resp 27 H 06/01/24 13:00 BP 144/87 06/01/24 13:00 Pulse Ox 89 L 06/01/24 13:00 O2 Del Method Nasal Cannula 06/01/24 13:00 O2 Flow Rate 4 06/01/24 13:00 05/31/24 06/01/24 06/01/24 22:59 06:59 14:59 Intake Total 2622 / 2622 300 / 2922 Output Total 350 / 350 150 / 150 Balance 2272 / 2272 300 / 2572 -150 / -150 Weight last 48 hrs Weight 73.51 kg Weight 72.5 kg Weight 74.843 kg Physical Exam 2 Const: COMMON NORMALS: no acute distress and patient oriented x3 Resp: COMMON NORMALS: normal respiratory effort, No retractions and No use of accessory muscles AUSCULTATION: crackles and wheezes Cardio: COMMON NORMALS: regular rate, regular rhythm, S1 normal heart sound present and S2 normal heart sound present RATE: regular rate RHYTHM: r egular rhythm HEART SOUNDS: S1 normal heart sound present and S2 normal heart sound present GI: COMMON NORMALS: Normal to inspection, nondistended, normoactive bowel sounds present and non-tender Extremity: COMMON NORMALS: no pedal edema Neuro: COMMON NORMALS: patient oriented x3 Psych: COMMON NORMALS: mental status grossly normal Data 06/01/24 03:34 06/01/24 03:34 Micro: Microbiology 05/31/24 15:21 Blood Culture - Preliminary Blood SPECIMEN COLLECTED 05/31/24 15:16 Blood Culture - Preliminary Blood SPECIMEN COLLECTED A&P Assessment and plan (1) Pneumonia: (2) Hypoxemia: (3) Sepsis: (4) Acute hypoxic respiratory failure: (5) Transaminitis: Plan Acute hypoxic respiratory failure -Secondary to pneumonia -With sepsis, sepsis features met given tachycardia, febrile, elevated lactic acid -With transaminitis Plan -Move to medical floors -Receiving septic bolus in the ER -Meropenem -Zyvox -Blood cultures -Respiratory eval, within normal limits -CT angiogram the chest CT/CT angio chest PE protcl [id number] IMPRESSION: 1. No pulmonary emboli. 2. Patchy peripheral consolidations throughout both lungs with a lower lobe predominance which while nonspecific can be seen in the setting of viral infection. -DuoNeb -Full code -Lovenox for DVT prophylaxis Syncopal episode -CT head no acute findings -Carotid artery ultrasound US/CV carotid duplex BI* [id number] IMPRESSION: 1. Less than 50% stenosis identified in the right internal carotid artery. 2. Less than 50% stenosis in the left internal carotid artery. 3. Bilateral antegrade flow in the bilateral vertebral arteries. 4. Suspected 1.6 cm left thyroid nodule recommend follow-up with non emergent thyroid ultrasound. -Cardiac echo -Telemetry monitoring Transaminitis, monitor LFTs, acute hep panel within normal limits Sepsis secondary to pneumonia as above Plan for today continue IV antibiotics, O2 sats do drop into the 80s with getting up out of bed, patient does feel lightheaded ambulation with assistance, will consider PT OT tomorrow, PDMP PDMP Reviewed: Not Reviewed Attestations 2 Medical Necessity Statement*: Patient requires hospitalization for acute hypoxic respiratory failure secondary to pneumonia Diagnoses Pneumonia J18.9 Hypoxemia R09.02 Sepsis A41.9 Acute hypoxic respiratory failure J96.01 Transaminitis R74.01
[2024-06-01] MEDS: meropenem 1,000 mg SDV 1000 MG IVP (18:20)
--- NOTE | 2024-06-01 19:22 | PC.NURSE ---
[email or web address]. Report given to Ratna Daugherty
--- NOTE | 2024-06-01 20:55 | PC.NURSE ---
Shift summary: Pt rested in bed for most of the shift. She did get out of bed to use BSC with assist due to her recent falls and reporting dizziness this am. The first time she got out of bed to BSC, Her O2 sats dropped to 80% on 2lpm/NC. O2 rate increased to 6, then when her exertion was done it was reduced to 4lpm/NC. It stayed at 4lpm/NC the rest of the shift. Sinus rhythm noted on monitor this am. Sinus tach noted this after noon. nebulizer treatments, IS and acapello started by RT. She had multiple visitors up until mid afternoon. She had around 1000 ml of urine output. She ate part of her meals, she is very selective on food preferences.
[2024-06-01] MEDS: pantoprazole 40 mg SDV IVP (21:57)
[2024-06-02] VITALS (12 sets, daily range): BP systolic 100–127; BP diastolic 60–69; PULSE 93–128; RESP 14–28; TEMP 36.6–37.1; O2SAT 75–94; BMI 28.6
[2024-06-02] MEDS: meropenem 1,000 mg SDV 1000 MG IVP ×3 (02:37→21:51)
[2024-06-02] MEDS: linezolid premix 600 MG/300 ML PREMIX 300 MG IV ×2 (03:32→17:11)
[2024-06-02 06:01] LABS: Basophils % 0.3 %; Eosinophils % 0.3 %; Hematocrit 38.3 % (36-47); Lymphocytes # 0.9 10^3/uL (0.8-4.8); Mean Corpuscular HGB Conc 27.9 g/dL (30-55); Mean Corpuscular Hemoglobin 30.5 pg (27-33); Mean Corpuscular Volume 109.1 fl (85-98); Monocytes # 1.4 10^3/uL (0.2-0.9); Monocytes % 11.4 %; Neutrophils # 9.94 10^3/uL (1.8-7.7); Neutrophils % 79.6 %; Nucleated Red Blood Cells % 0 %; Platelet Count 313 10^3/cmm (157-399); Red Blood Count 3.51 10^6/uL (3.85-5.65); Red Cell Distribution Width 13.5 % (12.1-15.1)
[2024-06-02] MEDS: enoxaparin 40 mg/0.4 mL Syringe SUBCUT (06:15)
[2024-06-02 06:33] LABS: Alanine Aminotransferase 103 U/L (0-33); Albumin Level 2.5 g/dL (3.5-5.2); Alkaline Phosphatase 110 U/L (35-105); Anion Gap 12.1 (5-19); Aspartate Amino Transferase 71 U/L (0-32); Blood Urea Nitrogen 19 mg/dL (8-23); Calcium 8.1 mg/dL (8.5-10.5); Carbon Dioxide 24 mmol/L (22-29); Chloride 105 mmol/L (98-107); Creatinine Clr Calc Pharmacy 57.4188; Globulin 2.7 g/dL (1.3-4.6); Glucose 118 mg/dL (65-115); Magnesium 1.9 mg/dL (1.7-2.3); Osmolality Calculated 287 mOsm/kg (285-295); Phosphorus 2.6 mg/dL (2.5-4.5); Potassium 4.1 mmol/L (3.5-5.1); Sodium 137 mmol/L (136-145); Total Bilirubin 0.6 mg/dL (0.15-1.2); Total Protein 5.2 g/dL (6.6-8.7)
[2024-06-02] MEDS: albuterol 2.5 mg/3 mL Neb INHALATION ×3 (08:22→21:26)
--- NOTE | 2024-06-02 08:33 | XRR_ITS ---
PROCEDURE INFORMATION: Exam: XR Chest Exam date and time: 06/02/2024 8:57 AM Age: 78 years old Clinical indication: Shortness of breath; Additional info: SOB TECHNIQUE: Imaging protocol: Radiologic exam of the chest. Views: 1 view. COMPARISON: CT angio chest PE protcl [id number] 05/31/2024 5:14 PM FINDINGS: Lungs: Poor inspiratory effort. Increasing opacity at the left lung base is probably due to the poor inspiration although mild infiltrate is probably present. Minimal atelectasis or infiltrate at the right lung base. Pleural spaces: Unremarkable. No pleural effusion. No pneumothorax. Heart/Mediastinum: See Vasculature finding. Vasculature: Mild cardiomegaly and uncoiling of the thoracic aorta. Bones/joints: Unremarkable. XR/XR chest 1V portable [id number] IMPRESSION: Pulmonary infiltrates.
[2024-06-02 08:50] LABS: ABG PCO2 35.5 mmHg (35-45); ABG PH Result 7.47 (7.35-7.45); Alveolar-Arterial Oxygen Gradi 5.8 mmHg (5-10); Arterial Blood Gas Hematocrit 37.4 % (37-47); Blood Gas Operator Identificat ED; Blood Gas Sample Site Brachial, left; Blood Gas Sample Type Arterial; Carboxyhemoglobin 0.9 %THgb (0.4-20.1); HCO3 ABG 25.6 mmol/L (22-26); HGB O2 Sat 92.2 % (95-100); Ionized Calcium Level - ABG 1.2 mmol/L (1.1-1.4); Oxygen Device OXY MASK; Oxygen Saturation ABG 93.9; PO2 ABG 62.8 mmHg (80.0-100.0); Potassium Level - ABG 3.8 mmol/L (3.5-5.0); Total Hemoglobin 12.2 g/dL (12-16)
--- NOTE | 2024-06-02 09:03 | PC.RESP ---
patient is on 10LPM oxygen due to low sats. note was placed under therapist treatment log.
[2024-06-02] MEDS: aspirin 81 mg EC Tablet PO (09:05)
[2024-06-02] MEDS: atorvastatin 40 mg Tablet 20 MG PO (09:05)
[2024-06-02 09:37] LABS: NT Pro B Type Natriuretic Pept 381 pg/mL (0-450); Procalcitonin 0.32 ng/mL (0-0.5)
[2024-06-02 09:48] LABS: C Reactive Protein 62.5 mg/L (0.0-4.9)
--- NOTE | 2024-06-02 12:49 | USR_ITS ---
PROCEDURE INFORMATION: Exam: US Duplex Lower Extremity Veins, Bilateral Exam date and time: 06/02/2024 4:09 PM Age: 78 years old Clinical indication: Swelling (edema) of limb; Lower extremity, bilateral TECHNIQUE: Imaging protocol: Real-time duplex ultrasound of the bilateral extremities with 2-D white scale, color Doppler flow and spectral waveform analysis including responses to compression and other maneuvers (when performed) with image documentation. Complete exam focused on the lower extremity veins. COMPARISON: CT abdomen pelvis w con* [id number] 06/07/2018 2:01 PM FINDINGS: Right deep veins: Unremarkable. The common femoral, femoral, proximal profunda femoral and popliteal veins are patent without thrombus. Normal Doppler waveforms. Normal compressibility and/or augmentation response. Left deep veins: Unremarkable. The common femoral, femoral, proximal profunda femoral and popliteal veins are patent without thrombus. Normal Doppler waveforms. Normal compressibility and/or augmentation response. Superficial veins: Greater saphenous veins at the saphenofemoral junctions are patent bilaterally without thrombus. Soft tissues: Unremarkable. US/CV venous duplex [facility] [id number] IMPRESSION: No evidence of deep vein thrombosis.
--- NOTE | 2024-06-02 16:53 | P.PN_ITS ---
Subjective 2 Subjective: - Patient was examined, earlier this mor [place], she was getting up beside the bed, she felt short of breath then thereafter, she had her breakfast denies any choking, coughing but she was found to have low O2 sats in the 75 on 4 L, she was put on 12 L oxime mask with 89% saturation she was looking calm and comfortable according to respiratory therapy, ABG obtained pH 7.466, pO2 62.8, pCO2 35.5, on 14 L. Patient was examined, currently she is on alert oriented x 3, following all commands she is resting comfortably in bed, currently on 10 L no suprasternal tractions or nasal flaring does have diffuse wheezing and crackles, no calf pain, calf swelling, no chest pain, we had a detailed discussion with her she tells me and from yesterday in the ICU similar situation when she got up in the ICU to the bedside commode her O2 sats dropped and took a few hours for her to recover, will continue to monitor closely I have put her on strict bedrest for now, she should get up with assistance and report of dysphagia level 6 diet aspiration precautions speech therapy eval Vitals/I&O/Wt Last Vital Signs Temp 98.7 F 06/02/24 12:00 Pulse 100 06/02/24 15:42 Resp 17 06/02/24 15:42 BP 110/62 06/02/24 12:00 Pulse Ox 94 06/02/24 15:42 O2 Del Method Oxymask 06/02/24 15:42 O2 Flow Rate 6 06/02/24 15:42 06/02/24 06/02/24 06/02/24 06:59 14:59 22:59 Intake Total 300 / 1600 240 / 240 Balance 300 / 550 240 / 240 Weight last 48 hrs Weight 73.391 kg Weight 73.51 kg Weight 72.5 kg Physical Exam 2 Const: COMMON NORMALS: no acute distress and patient oriented x3 Resp: COMMON NORMALS: normal respiratory effort, No retractions and No use of accessory muscles AUSCULTATION: crackles and wheezes Cardio: COMMON NORMALS: regular rate, regular rhythm, S1 normal heart sound present and S2 normal heart sound present RATE: regular rate RHYTHM: r egular rhythm HEART SOUNDS: S1 normal heart sound present and S2 normal heart sound present GI: COMMON NORMALS: Normal to inspection, nondistended, normoactive bowel sounds present and non-tender Extremity: COMMON NORMALS: no pedal edema Neuro: COMMON NORMALS: patient oriented x3 Psych: COMMON NORMALS: mental status grossly normal Data 06/02/24 05:47 06/02/24 05:47 Micro: Microbiology 05/31/24 15:21 Blood Culture - Preliminary Blood NEGATIVE TO DATE 05/31/24 15:16 Blood Culture - Preliminary Blood NEGATIVE TO DATE A&P Assessment and plan (1) Pneumonia: (2) Hypoxemia: (3) Sepsis: (4) Acute hypoxic respiratory failure: (5) Transaminitis: Plan Acute hypoxic respiratory failure -Secondary to pneumonia -With sepsis, sepsis features met given tachycardia, febrile, elevated lactic acid -With transaminitis Plan -Move to medical floors, currently on 10 L, resting comfortably, placed on strict bedrest -Monitor respiratory status closely -Order venous ultrasound lower extremity, CTA on admission did not show any evidence of PE she is on Lovenox for DVT prophylaxis -Meropenem -Zyvox -Blood cultures -Respiratory eval, within normal limits -CT angiogram the chest CT/CT angio chest PE protcl [id number] IMPRESSION: 1. No pulmonary emboli. 2. Patchy peripheral consolidations throughout both lungs with a lower lobe predominance which while nonspecific can be seen in the setting of viral infection. -DuoNeb -Full code -Lovenox for DVT prophylaxis Syncopal episode -CT head no acute findings -Carotid artery ultrasound US/CV carotid duplex BI* [id number] IMPRESSION: 1. Less than 50% stenosis identified in the right internal carotid artery. 2. Less than 50% stenosis in the left internal carotid artery. 3. Bilateral antegrade flow in the bilateral vertebral arteries. 4. Suspected 1.6 cm left thyroid nodule recommend follow-up with non emergent thyroid ultrasound. -Cardiac echo CONCLUSIONS LV systolic function is normal with EF of 55-60% Mild mitral regurgitation Mild tricuspid regurgitation Mild pulmonary hypertension No comparison studies are available. -Telemetry monitoring Transaminitis, monitor LFTs, acute hep panel within normal limits Sepsis secondary to pneumonia as above Plan for today placed on bedrest, continue IV antibiotics, monitor O2 sats closely monitor respiratory status closely, D-dimer, venous ultrasound, troponin series, continue monitoring respiratory status closely PDMP PDMP Reviewed: Not Reviewed Attestations 2 Medical Necessity Statement*: Patient requires hospitalization for acute hypoxic respiratory failure secondary pneumonia, with persistent acute hypoxia with exertion Diagnoses Pneumonia J18.9 Hypoxemia R09.02 Sepsis A41.9 Acute hypoxic respiratory failure J96.01 Transaminitis R74.01
--- NOTE | 2024-06-02 18:09 | ECG_ITS ---
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
[2024-06-02 18:40] LABS: D Dimer 2.29 ug/mLFEU (0-0.59)
[2024-06-02 18:44] LABS: Troponin(5th) Baseline 25 ng/L (0-10)
[2024-06-02 20:31] LABS: Troponin 5 2HR 26.29 ng/L (0-10); Troponin 5 2HR Delta 1.29 ABS# (0-10)
[2024-06-02] MEDS: pantoprazole 40 mg SDV IVP (21:51)
[2024-06-03] VITALS (18 sets, daily range): BP systolic 104–114; BP diastolic 61–72; PULSE 65–115; RESP 14–22; TEMP 36.6–37.2; O2SAT 91–99
[2024-06-03] MEDS: albuterol 2.5 mg/3 mL Neb INHALATION ×5 (00:36→20:07)
[2024-06-03 00:40] LABS: Troponin 5 6HR 28.76 ng/L (0-10); Troponin 5 6HR Delta 3.76 ng/L (0-12)
[2024-06-03 00:45] LABS: Basophils % 0.4 %; Eosinophils % 0.2 %; Hematocrit 33.2 % (36-47); Lymphocytes # 0.8 10^3/uL (0.8-4.8); Lymphocytes % 7.2 %; Mean Corpuscular HGB Conc 31.9 g/dL (30-55); Mean Corpuscular Hemoglobin 29.9 pg (27-33); Mean Corpuscular Volume 93.8 fl (85-98); Mean Platelet Volume 10.2 fL (7.4-10.4); Monocytes # 1.2 10^3/uL (0.2-0.9); Monocytes % 10.6 %; Neutrophils % 80.3 %; Nucleated Red Blood Cells % 0 %; Platelet Count 306 10^3/cmm (157-399); Red Blood Count 3.54 10^6/uL (3.85-5.65); Red Cell Distribution Width 13.4 % (12.1-15.1); White Blood Count 11.32 10^3/uL (3.29-11.43)
[2024-06-03 01:08] LABS: Alanine Aminotransferase 81 U/L (0-33); Albumin Level 2.3 g/dL (3.5-5.2); Alkaline Phosphatase 118 U/L (35-105); Anion Gap 12.7 (5-19); Aspartate Amino Transferase 47 U/L (0-32); Blood Urea Nitrogen 20 mg/dL (8-23); Calcium 7.9 mg/dL (8.5-10.5); Carbon Dioxide 25 mmol/L (22-29); Chloride 102 mmol/L (98-107); Creatinine Clr Calc Pharmacy 57.4188; Globulin 3.1 g/dL (1.3-4.6); Glucose 108 mg/dL (65-115); Magnesium 1.8 mg/dL (1.7-2.3); Osmolality Calculated 285 mOsm/kg (285-295); Phosphorus 2.9 mg/dL (2.5-4.5); Potassium 3.7 mmol/L (3.5-5.1); Sodium 136 mmol/L (136-145); Total Bilirubin 0.8 mg/dL (0.15-1.2); Total Protein 5.4 g/dL (6.6-8.7)
[2024-06-03] MEDS: linezolid premix 600 MG/300 ML PREMIX 300 MG IV ×2 (03:26→15:19)
[2024-06-03] MEDS: meropenem 1,000 mg SDV 1000 MG IVP ×3 (03:43→23:05)
[2024-06-03] MEDS: enoxaparin 40 mg/0.4 mL Syringe SUBCUT (05:19)
[2024-06-03] MEDS: aspirin 81 mg EC Tablet PO (09:29)
[2024-06-03] MEDS: atorvastatin 40 mg Tablet 20 MG PO (09:29)
--- NOTE | 2024-06-03 17:37 | P.PN_ITS ---
Subjective 2 Subjective: Patient reports this morning, with exertion such as getting up to side of the bed she does become tachycardic, heart rates elevated, when exerting herself her O2 sats dropped into the 80s, she is seems to be recovering a bit quicker, but she is frustrated that this seems to continue to happen Vitals/I&O/Wt Last Vital Signs Temp 97.8 F 06/03/24 16:00 Pulse 112 H 06/03/24 16:00 Resp 18 06/03/24 16:00 BP 107/70 06/03/24 16:00 Pulse Ox 98 06/03/24 16:00 O2 Del Method Nasal Cannula 06/03/24 15:30 O2 Flow Rate 7 06/03/24 16:00 06/03/24 06/03/24 06/03/24 06:59 14:59 22:59 Intake Total 300 / 840 Balance 300 / 840 Weight last 48 hrs Weight 76.839 kg Weight 73.391 kg Physical Exam 2 Const: COMMON NORMALS: no acute distress and patient oriented x3 Resp: COMMON NORMALS: normal respiratory effort, No retractions and No use of accessory muscles AUSCULTATION: wheezes Cardio: COMMON NORMALS: regular rate, regular rhythm, S1 normal heart sound present and S2 normal heart sound present RATE: regular rate RHYTHM: r egular rhythm HEART SOUNDS: S1 normal heart sound present and S2 normal heart sound present GI: COMMON NORMALS: Normal to inspection, nondistended, normoactive bowel sounds present and non-tender Extremity: COMMON NORMALS: no pedal edema Neuro: COMMON NORMALS: patient oriented x3 Psych: COMMON NORMALS: mental status grossly normal Data 06/03/24 00:15 06/03/24 00:15 A&P Assessment and plan (1) Pneumonia: (2) Hypoxemia: (3) Sepsis: (4) Acute hypoxic respiratory failure: (5) Transaminitis: Plan Acute hypoxic respiratory failure -Secondary to pneumonia -With sepsis, sepsis features met given tachycardia, febrile, elevated lactic acid, resolved -With transaminitis -Now evidence of acute respiratory failure, hypoxic episodes, tachycardic episodes with minimal exertion Plan -Move to medical floors, currently on 6 L, with episodes of tachycardia and hypoxia with minimal exertion -Monitor respiratory status closely -Order venous ultrasound lower extremity negative for DVT, CTA on admission did not show any evidence of PE she is on Lovenox for DVT prophylaxis -D-dimer trending downwards -No significant delta troponin -Meropenem -Zyvox -Blood cultures -Respiratory eval, within normal limits -CT angiogram the chest CT/CT angio chest PE protcl [id number] IMPRESSION: 1. No pulmonary emboli. 2. Patchy peripheral consolidations throughout both lungs with a lower lobe predominance which while nonspecific can be seen in the setting of viral infection. -DuoNeb -Full code -Lovenox for DVT prophylaxis Syncopal episode -CT head no acute findings -Carotid artery ultrasound US/CV carotid duplex BI* [id number] IMPRESSION: 1. Less than 50% stenosis identified in the right internal carotid artery. 2. Less than 50% stenosis in the left internal carotid artery. 3. Bilateral antegrade flow in the bilateral vertebral arteries. 4. Suspected 1.6 cm left thyroid nodule recommend follow-up with non emergent thyroid ultrasound. -Cardiac echo CONCLUSIONS LV systolic function is normal with EF of 55-60% Mild mitral regurgitation Mild tricuspid regurgitation Mild pulmonary hypertension No comparison studies are available. -Telemetry monitoring Transaminitis, monitor LFTs, acute hep panel within normal limits Sepsis secondary to pneumonia as above Plan for today she can do some movement up out of bed, with assistance, monitor for fall risk we will give her a dose of steroids, Mucinex continue IV antibiotics monitor respiratory status closely PDMP PDMP Reviewed: Not Reviewed Attestations 2 Medical Necessity Statement*: Patient requires hospitalization for acute hypoxic respiratory failure secondary pneumonia, with episodes of acute respiratory distress with exertion Diagnoses Pneumonia J18.9 Hypoxemia R09.02 Sepsis A41.9 Acute hypoxic respiratory failure J96.01 Transaminitis R74.01
[2024-06-03] MEDS: methylPREDNISolone sod succ 125 mg/2 mL INJ IVP (18:16)
[2024-06-03] MEDS: pantoprazole 40 mg SDV IVP (20:46)
[2024-06-04] VITALS (15 sets, daily range): BP systolic 109–135; BP diastolic 67–83; PULSE 97–120; RESP 17–21; TEMP 36.6–36.7; O2SAT 91–99
[2024-06-04] MEDS: linezolid premix 600 MG/300 ML PREMIX 300 MG IV ×2 (03:26→16:48)
[2024-06-04] MEDS: albuterol 2.5 mg/3 mL Neb INHALATION ×4 (03:42→23:42)
[2024-06-04 04:26] LABS: Basophils % 0.3 %; Eosinophils # 0.1 10^3/uL (0.0-0.8); Eosinophils % 0.8 %; Hematocrit 37.5 % (36-47); Lymphocytes # 0.5 10^3/uL (0.8-4.8); Lymphocytes % 6.8 %; Mean Corpuscular HGB Conc 30.7 g/dL (30-55); Mean Corpuscular Hemoglobin 29.2 pg (27-33); Mean Corpuscular Volume 95.2 fl (85-98); Mean Platelet Volume 10.9 fL (7.4-10.4); Monocytes # 0.1 10^3/uL (0.2-0.9); Monocytes % 1.7 %; Neutrophils # 6.64 10^3/uL (1.8-7.7); Neutrophils % 88.9 %; Nucleated Red Blood Cells % 0 %; Platelet Count 255 10^3/cmm (157-399); Red Blood Count 3.94 10^6/uL (3.85-5.65); Red Cell Distribution Width 13.5 % (12.1-15.1); White Blood Count 7.47 10^3/uL (3.29-11.43)
[2024-06-04 04:44] LABS: Blood Urea Nitrogen 20 mg/dL (8-23); Calcium 8.3 mg/dL (8.5-10.5); Carbon Dioxide 25 mmol/L (22-29); Chloride 104 mmol/L (98-107); Creatinine Clr Calc Pharmacy 58.7214; Glucose 158 mg/dL (65-115); Osmolality Calculated 292 mOsm/kg (285-295); Sodium 138 mmol/L (136-145)
[2024-06-04 05:02] LABS: Anion Gap 14.1 (5-19); Potassium 5.1 mmol/L (3.5-5.1)
[2024-06-04] MEDS: enoxaparin 40 mg/0.4 mL Syringe SUBCUT (05:16)
--- NOTE | 2024-06-04 08:38 | XRR_ITS ---
PROCEDURE INFORMATION: Exam: XR Chest Exam date and time: 06/04/2024 9:11 AM Age: 78 years old Clinical indication: Shortness of breath; Additional info: SOB TECHNIQUE: Imaging protocol: Radiologic exam of the chest. Views: 1 view. COMPARISON: CR (CHEST, ) 06/02/2024 8:57 AM FINDINGS: Lungs: Left lower lobe consolidation is unchanged. Mild interstitial and vascular prominence again demonstrated. Platelike opacities suggestive of subsegmental atelectasis in the right mid/lower lung, unchanged. Pleural spaces: Unremarkable. No pleural effusion. No pneumothorax. Heart/Mediastinum: Cardiomediastinal silhouette is unchanged. Bones/joints: Unremarkable. XR/XR chest 1V portable [id number] IMPRESSION: Left lower lobe consolidation is unchanged.
[2024-06-04] MEDS: meropenem 1,000 mg SDV 1000 MG IVP ×3 (09:22→23:20)
[2024-06-04] MEDS: atorvastatin 40 mg Tablet 20 MG PO (09:22)
[2024-06-04] MEDS: guaiFENesin 600 mg Tablet PO ×2 (09:22→17:13)
[2024-06-04] MEDS: aspirin 81 mg EC Tablet PO (09:22)
[2024-06-04 10:07] LABS: Erythrocyte Sedimentation Rate 43 mm/hr (0-15)
[2024-06-04 10:16] LABS: NT Pro B Type Natriuretic Pept 196 pg/mL (0-450); Procalcitonin 0.12 ng/mL (0-0.5)
[2024-06-04 10:28] LABS: C Reactive Protein 138.9 mg/L (0.0-4.9)
[2024-06-04 11:16] LABS: Lactate Dehydrogenase 577 U/L (135-214)
--- NOTE | 2024-06-04 13:50 | PC.SOCIAL ---
IMM Update pg 2 of IMM Updated and reviewed w/ patient. Copy provided and copy dated, initialed and placed in chart.
[2024-06-04 16:45] LABS: C.Diff PCR (Lab) NEGATIVE (Negative)
--- NOTE | 2024-06-04 18:54 | P.PN_ITS ---
Subjective 2 Subjective: Patient was seen this morning, denies any chest pain, does report shortness of breath, O2 sats do drop into the 80s with minimal exertion she becomes tachycardic into the 120s, however she recovers more quickly Vitals/I&O/Wt Last Vital Signs Temp 98.1 F 06/04/24 16:00 Pulse 110 H 06/04/24 16:23 Resp 18 06/04/24 16:23 BP 129/72 06/04/24 16:00 Pulse Ox 95 06/04/24 16:23 O2 Del Method Nasal Cannula 06/04/24 16:23 O2 Flow Rate 6 06/04/24 16:23 06/04/24 06/04/24 06/04/24 06:59 14:59 22:59 Intake Total 300 / 600 Balance 300 / 600 Weight last 48 hrs Weight 76.929 kg Weight 76.839 kg Physical Exam 2 Const: COMMON NORMALS: no acute distress and patient oriented x3 Resp: COMMON NORMALS: normal respiratory effort, No retractions, No use of accessory muscles and clear to auscultation bilaterally AUSCULTATION: clear to auscultation bilaterally Cardio: COMMON NORMALS: regular rate, regular rhythm, S1 normal heart sound present and S2 normal heart sound present RATE: regular rate RHYTHM: r egular rhythm HEART SOUNDS: S1 normal heart sound present and S2 normal heart sound present GI: COMMON NORMALS: Normal to inspection, nondistended, normoactive bowel sounds present and non-tender Extremity: COMMON NORMALS: no pedal edema Neuro: COMMON NORMALS: patient oriented x3 Psych: COMMON NORMALS: mental status grossly normal Data 06/04/24 03:16 06/04/24 03:16 A&P Assessment and plan (1) Pneumonia: (2) Hypoxemia: (3) Sepsis: (4) Acute hypoxic respiratory failure: (5) Transaminitis: Plan Acute hypoxic respiratory failure -Secondary to pneumonia -Now with concerns for acute respiratory distress given increased oxygen requirements, -With sepsis, sepsis features met given tachycardia, febrile, elevated lactic acid, resolved -With transaminitis -Now evidence of acute respiratory failure, hypoxic episodes, tachycardic episodes with minimal exertion Plan -Move to medical floors, currently on 6 L, with episodes of tachycardia and hypoxia with minimal exertion -Monitor respiratory status closely -Order venous ultrasound lower extremity negative for DVT, CTA on admission did not show any evidence of PE she is on Lovenox for DVT prophylaxis -D-dimer trending downwards -No significant delta troponin -Meropenem -Zyvox -Blood cultures -Respiratory eval, within normal limits -CT angiogram the chest CT/CT angio chest PE protcl [id number] IMPRESSION: 1. No pulmonary emboli. 2. Patchy peripheral consolidations throughout both lungs with a lower lobe predominance which while nonspecific can be seen in the setting of viral infection. -DuoNeb -Full code -Lovenox for DVT prophylaxis Syncopal episode -CT head no acute findings -Carotid artery ultrasound US/CV [place] duplex BI* [id number] IMPRESSION: 1. Less than 50% stenosis identified in the right internal carotid artery. 2. Less than 50% stenosis in the left internal carotid artery. 3. Bilateral antegrade flow in the bilateral vertebral arteries. 4. Suspected 1.6 cm left thyroid nodule recommend follow-up with non emergent thyroid ultrasound. -Cardiac echo CONCLUSIONS LV systolic function is normal with EF of 55-60% Mild mitral regurgitation Mild tricuspid regurgitation Mild pulmonary hypertension No comparison studies are available. -Telemetry monitoring Transaminitis, monitor LFTs, acute hep panel within normal limits Sepsis secondary to pneumonia as above Plan for today or exertion, at [facility], continue IV antibiotics, monitor respiratory status closely, telemetric monitoring PDMP PDMP Reviewed: Not Reviewed Attestations 2 Medical Necessity Statement*: Patient requires hospitalization for acute hypoxic respiratory failure secondary to pneumonia, concerns for acute respiratory distress Diagnoses Pneumonia J18.9 Hypoxemia R09.02 Sepsis A41.9 Acute hypoxic respiratory failure J96.01 Transaminitis R74.01
--- NOTE | 2024-06-04 19:26 | PC.NURSE ---
Notified Dr. Santoyo patients IV located in the left wrist infiltrated. Ice was applied. Dr. Santoyo stated to watch the area.
[2024-06-04] MEDS: methylPREDNISolone sod succ 125 mg/2 mL INJ 40 MG IVP (20:09)
[2024-06-04] MEDS: pantoprazole 40 mg SDV IVP (20:09)
[2024-06-05] VITALS (12 sets, daily range): BP systolic 123–146; BP diastolic 74–88; PULSE 82–115; RESP 17–19; TEMP 36.4–36.7; O2SAT 92–99
[2024-06-05] MEDS: linezolid premix 600 MG/300 ML PREMIX 300 MG IV ×2 (03:28→16:43)
[2024-06-05 04:51] LABS: Basophils % 0.2 %; Hematocrit 34.4 % (36-47); Lymphocytes # 0.7 10^3/uL (0.8-4.8); Lymphocytes % 5.1 %; Mean Corpuscular Hemoglobin 30.2 pg (27-33); Mean Corpuscular Volume 94.5 fl (85-98); Mean Platelet Volume 10.1 fL (7.4-10.4); Monocytes # 0.6 10^3/uL (0.2-0.9); Monocytes % 4.3 %; Neutrophils # 11.51 10^3/uL (1.8-7.7); Neutrophils % 88.3 %; Nucleated Red Blood Cells % 0 %; Platelet Count 357 10^3/cmm (157-399); Red Blood Count 3.64 10^6/uL (3.85-5.65); Red Cell Distribution Width 13.3 % (12.1-15.1); White Blood Count 13.04 10^3/uL (3.29-11.43)
[2024-06-05 05:06] LABS: Anion Gap 14.4 (5-19); Blood Urea Nitrogen 20 mg/dL (8-23); Calcium 8.3 mg/dL (8.5-10.5); Carbon Dioxide 25 mmol/L (22-29); Chloride 103 mmol/L (98-107); Creatinine Clr Calc Pharmacy 58.7554; Glucose 217 mg/dL (65-115); Osmolality Calculated 295 mOsm/kg (285-295); Potassium 4.4 mmol/L (3.5-5.1); Sodium 138 mmol/L (136-145)
[2024-06-05] MEDS: enoxaparin 40 mg/0.4 mL Syringe SUBCUT (05:12)
[2024-06-05] MEDS: aspirin 81 mg EC Tablet PO (08:42)
[2024-06-05] MEDS: meropenem 1,000 mg SDV 1000 MG IVP ×2 (08:42→15:33)
[2024-06-05] MEDS: atorvastatin 40 mg Tablet 20 MG PO (08:42)
[2024-06-05] MEDS: guaiFENesin 600 mg Tablet PO ×2 (08:43→18:30)
[2024-06-05] MEDS: methylPREDNISolone sod succ 125 mg/2 mL INJ 40 MG IVP ×2 (08:45→20:30)
[2024-06-05] MEDS: albuterol 2.5 mg/3 mL Neb INHALATION (09:32)
--- NOTE | 2024-06-05 17:27 | PM.PN ---
Subjective Subjective: Patient was seen this morning, he tells me that she continues to do well at rest, however she continues to have tachycardia and O2 sats drops with exertion Vitals/I&O/Wt Last Vital Signs Temp 97.9 F 06/05/24 16:43 Pulse 110 H 06/05/24 16:43 Resp 19 H 06/05/24 16:43 BP 123/74 06/05/24 16:43 Pulse Ox 95 06/05/24 16:00 O2 Del Method Nasal Cannula 06/05/24 16:00 O2 Flow Rate 5 06/05/24 09:33 06/05/24 06/05/24 06/05/24 06:59 14:59 22:59 Intake Total 300 / 600 Output Total 500 / 500 Balance -200 / 100 Weight last 48 hrs Weight 76.912 kg Weight 76.929 kg Physical Exam Const: COMMON NORMALS: no acute distress and patient oriented x3 Resp: COMMON NORMALS: normal respiratory effort, No retractions and No use of accessory muscles AUSCULTATION: crackles and wheezes Cardio: COMMON NORMALS: regular rate, regular rhythm, S1 normal heart sound present and S2 normal heart sound present RATE: regular rate RHYTHM: regular rhythm HEART SOUNDS: S1 normal heart sound present and S2 normal heart sound present GI: COMMON NORMALS: Normal to inspection, nondistended, normoactive bowel sounds present and non-tender Extremity: COMMON NORMALS: no pedal edema Neuro: COMMON NORMALS: patient oriented x3 Psych: COMMON NORMALS: mental status grossly normal Data 06/05/24 04:28 06/05/24 04:28 Micro: Microbiology 05/31/24 15:21 Blood Culture - Final Blood NO GROWTH AFTER 5 DAYS 05/31/24 15:16 Blood Culture - Final Blood NO GROWTH AFTER 5 DAYS 06/04/24 16:34 Gram Stain - Final Sputum - Expectorated Sputum Sputum Culture - Preliminary A&P Assessment and plan (1) Pneumonia: (2) Hypoxemia: (3) Sepsis: (4) Acute hypoxic respiratory failure: (5) Transaminitis: Plan Acute hypoxic respiratory failure -Secondary to pneumonia -Now with concerns for acute respiratory distress given increased oxygen requirements, -With sepsis, sepsis features met given tachycardia, febrile, elevated lactic acid, resolved -With transaminitis -Now evidence of acute respiratory failure, hypoxic episodes, tachycardic episodes with minimal exertion Plan -Move to medical floors, currently on 6 L, with episodes of tachycardia and hypoxia with minimal exertion -Monitor respiratory status closely -Order venous ultrasound lower extremity negative for DVT, CTA on admission did not show any evidence of PE she is on Lovenox for DVT prophylaxis -D-dimer trending downwards -No significant delta troponin -Meropenem -Zyvox -Blood cultures -Respiratory eval, within normal limits -CT angiogram the chest CT/CT angio chest PE protcl [id number] IMPRESSION: 1. No pulmonary emboli. 2. Patchy peripheral consolidations throughout both lungs with a lower lobe predominance which while nonspecific can be seen in the setting of viral infection. -DuoNeb -Full code -Lovenox for DVT prophylaxis Sinus tachycardia, will consider beta-tristian based on clinical progress Syncopal episode -CT head no acute findings -Carotid artery ultrasound US/[place] BI* [id number] IMPRESSION: 1. Less than 50% stenosis identified in the right internal carotid artery. 2. Less than 50% stenosis in the left internal carotid artery. 3. Bilateral antegrade flow in the bilateral vertebral arteries. 4. Suspected 1.6 cm left thyroid nodule recommend follow-up with non emergent thyroid ultrasound. -Cardiac echo CONCLUSIONS LV systolic function is normal with EF of 55-60% Mild mitral regurgitation Mild tricuspid regurgitation Mild pulmonary hypertension No comparison studies are available. -Telemetry monitoring Transaminitis, monitor LFTs, acute hep panel within normal limits Sepsis secondary to pneumonia as above Plan for today or exertion, at [facility], continue IV antibiotics, monitor respiratory status closely, telemetric monitoring PDMP PDMP Reviewed: Not Reviewed Attestations Medical Necessity Statement*: Patient requires hospitalization for acute hypoxic respiratory failure, now with evidence of acute respiratory distress Diagnoses Pneumonia J18.9 Hypoxemia R09.02 Sepsis A41.9 Acute hypoxic respiratory failure J96.01 Transaminitis R74.01
[2024-06-05] MEDS: pantoprazole 40 mg SDV IVP (20:30)
[2024-06-06] VITALS (11 sets, daily range): BP systolic 106–142; BP diastolic 70–78; PULSE 79–114; RESP 16–20; TEMP 36.4–36.7; O2SAT 92–98; BMI 29.9
[2024-06-06] MEDS: meropenem 1,000 mg SDV 1000 MG IVP ×4 (00:31→23:23)
[2024-06-06] MEDS: linezolid premix 600 MG/300 ML PREMIX 300 MG IV ×2 (03:56→14:29)
[2024-06-06 05:21] LABS: Basophils % 0.1 %; Eosinophils % 0.1 %; Hematocrit 34.7 % (36-47); Lymphocytes # 0.7 10^3/uL (0.8-4.8); Lymphocytes % 6.4 %; Mean Corpuscular HGB Conc 31.7 g/dL (30-55); Mean Corpuscular Hemoglobin 29.8 pg (27-33); Mean Platelet Volume 9.9 fL (7.4-10.4); Monocytes # 0.4 10^3/uL (0.2-0.9); Neutrophils % 87.2 %; Nucleated Red Blood Cells % 0 %; Platelet Count 348 10^3/cmm (157-399); Red Blood Count 3.69 10^6/uL (3.85-5.65); Red Cell Distribution Width 13.3 % (12.1-15.1); White Blood Count 10.66 10^3/uL (3.29-11.43)
[2024-06-06 05:42] LABS: C Reactive Protein 30.7 mg/L (0.0-4.9)
[2024-06-06 05:46] LABS: NT Pro B Type Natriuretic Pept 446 pg/mL (0-450); Procalcitonin 0.07 ng/mL (0-0.5)
[2024-06-06 05:57] LABS: Anion Gap 13.6 (5-19); Blood Urea Nitrogen 22 mg/dL (8-23); Calcium 8.1 mg/dL (8.5-10.5); Carbon Dioxide 26 mmol/L (22-29); Chloride 104 mmol/L (98-107); Glucose 169 mg/dL (65-115); Osmolality Calculated 295 mOsm/kg (285-295); Potassium 4.6 mmol/L (3.5-5.1); Sodium 139 mmol/L (136-145)
[2024-06-06] MEDS: enoxaparin 40 mg/0.4 mL Syringe SUBCUT (06:13)
--- NOTE | 2024-06-06 07:00 | XRR_ITS ---
PROCEDURE INFORMATION: Exam: XR Chest Exam date and time: 06/06/2024 6:18 AM Age: 78 years old Clinical indication: Shortness of breath; Additional info: SOB TECHNIQUE: Imaging protocol: Radiologic exam of the chest. Views: 1 view. COMPARISON: CR XR chest 1V portable [id number] 06/04/2024 9:11 AM FINDINGS: Lungs: Stable bibasilar atelectasis/pneumonitis versus edema, [id number]. Pleural spaces: Unremarkable. No pleural effusion. No pneumothorax. Heart/Mediastinum: Unremarkable. No cardiomegaly. Bones/joints: Unremarkable. XR/XR chest 1V portable [id number] IMPRESSION: Stable bibasilar atelectasis/pneumonitis versus edema, [id number].
[2024-06-06] MEDS: guaiFENesin 600 mg Tablet PO ×2 (08:45→16:32)
[2024-06-06] MEDS: methylPREDNISolone sod succ 40 mg SDV IVP (08:45)
[2024-06-06] MEDS: atorvastatin 40 mg Tablet 20 MG PO (08:46)
[2024-06-06] MEDS: aspirin 81 mg EC Tablet PO (08:46)
[2024-06-06] MEDS: FUROsemide 10 mg/mL SDV 2mL 20 MG IVP (10:42)
--- NOTE | 2024-06-06 13:22 | PC.SOCIAL ---
IMM Update pg 2 of IMM updated and reviewed w/ patient. Copy provided and copy dated, initialed and placed in chart.
--- NOTE | 2024-06-06 13:43 | PC.NURSE ---
Pt takes shower with two person assist. Requires 10L/NC to transfer into shower, quickly recovered down to 5L/NC. Pulse noted to increase to 130s while transferring, but again quickly recovered into the 100s.
--- NOTE | 2024-06-06 15:37 | P.PN_ITS ---
Subjective 2 Subjective: Patient was seen this morning she does report improvement with her shortness of breath, her tachycardia she feels is related to the albuterol, no fevers, no chills, no nausea, no vomiting, she wants to try to take a shower today Vitals/I&O/Wt Last Vital Signs Temp 97.5 F L 06/06/24 11:48 Pulse 114 H 06/06/24 11:48 Resp 20 H 06/06/24 11:48 BP 106/70 06/06/24 11:48 Pulse Ox 92 06/06/24 11:48 O2 Del Method Nasal Cannula 06/06/24 11:48 O2 Flow Rate 5 06/06/24 11:48 06/06/24 06/06/24 06/06/24 06:59 14:59 22:59 Intake Total 300 / 600 Balance 300 / 600 Weight last 48 hrs Weight 76.657 kg Weight 76.912 kg Physical Exam 2 Const: COMMON NORMALS: no acute distress and patient oriented x3 Resp: COMMON NORMALS: normal respiratory effort, No retractions, No use of accessory muscles and clear to auscultation bilaterally AUSCULTATION: clear to auscultation bilaterally Cardio: COMMON NORMALS: regular rate, regular rhythm, S1 normal heart sound present and S2 normal heart sound present RATE: regular rate RHYTHM: r egular rhythm HEART SOUNDS: S1 normal heart sound present and S2 normal heart sound present GI: COMMON NORMALS: Normal to inspection, nondistended, normoactive bowel sounds present and non-tender Extremity: COMMON NORMALS: no pedal edema Neuro: COMMON NORMALS: patient oriented x3 Psych: COMMON NORMALS: mental status grossly normal Data 06/06/24 04:55 06/06/24 04:55 Micro: Microbiology 05/31/24 15:21 Blood Culture - Final Blood NO GROWTH AFTER 5 DAYS 05/31/24 15:16 Blood Culture - Final Blood NO GROWTH AFTER 5 DAYS 06/04/24 16:34 Gram Stain - Final Sputum - Expectorated Sputum Sputum Culture - Preliminary A&P Assessment and plan (1) Pneumonia: (2) Hypoxemia: (3) Sepsis: (4) Acute hypoxic respiratory failure: (5) Transaminitis: Plan Acute hypoxic respiratory failure -Secondary to pneumonia -Now with concerns for acute respiratory distress given increased oxygen requirements, -With sepsis, sepsis features met given tachycardia, febrile, elevated lactic acid, resolved -With transaminitis -Now evidence of acute respiratory failure, hypoxic episodes, tachycardic episodes with minimal exertion Plan -Move to medical floors, currently on 6 L, with episodes of tachycardia and hypoxia with minimal exertion -Monitor respiratory status closely -Order venous ultrasound lower extremity negative for DVT, CTA on admission did not show any evidence of PE she is on Lovenox for DVT prophylaxis -D-dimer trending downwards -No significant delta troponin -Meropenem -Zyvox -Blood cultures -Respiratory eval, within normal limits -CT angiogram the chest CT/CT angio chest PE protcl [id number] IMPRESSION: 1. No pulmonary emboli. 2. Patchy peripheral consolidations throughout both lungs with a lower lobe predominance which while nonspecific can be seen in the setting of viral infection. -DuoNeb -Full code -Lovenox for DVT prophylaxis Sinus tachycardia, will consider beta-tristian based on clinical progress Syncopal episode -CT head no acute findings -Carotid artery ultrasound US/CV carotid duplex BI* [id number] IMPRESSION: 1. Less than 50% stenosis identified in the right internal carotid artery. 2. Less than 50% stenosis in the left internal carotid artery. 3. Bilateral antegrade flow in the bilateral vertebral arteries. 4. Suspected 1.6 cm left thyroid nodule recommend follow-up with non emergent thyroid ultrasound. -Cardiac echo CONCLUSIONS LV systolic function is normal with EF of 55-60% Mild mitral regurgitation Mild tricuspid regurgitation Mild pulmonary hypertension No comparison studies are available. -Telemetry monitoring Transaminitis, monitor LFTs, acute hep panel within normal limits Sepsis secondary to pneumonia as above Plan for today Patient was seen this morning, continues to have intermittent episodes shortness of breath with exertion requires 5 L, after the shower, she required 10 L, will continue to monitor her and give her 1 dose IV Lasix recheck troponin, D-dimer PDMP PDMP Reviewed: Not Reviewed Attestations 2 Medical Necessity Statement*: Patient requires hospitalization acute hypoxic respiratory failure secondary to pneumonia, acute respiratory distress syndrome Diagnoses Pneumonia J18.9 Hypoxemia R09.02 Sepsis A41.9 Acute hypoxic respiratory failure J96.01 Transaminitis R74.01
[2024-06-06 17:04] LABS: Troponin T (5th) Once 22 ng/L (0-10)
[2024-06-06] MEDS: pantoprazole 40 mg SDV IVP (20:29)
[2024-06-07] VITALS (8 sets, daily range): BP systolic 104–125; BP diastolic 61–77; PULSE 80–129; RESP 16–19; TEMP 36.5–36.7; O2SAT 93–98
[2024-06-07] MEDS: linezolid premix 600 MG/300 ML PREMIX 300 MG IV ×2 (04:03→15:04)
[2024-06-07 04:41] LABS: Basophils % 0.2 %; Eosinophils % 0.3 %; Hematocrit 35.3 % (36-47); Lymphocytes # 1.5 10^3/uL (0.8-4.8); Lymphocytes % 12.9 %; Mean Corpuscular Volume 93.6 fl (85-98); Mean Platelet Volume 9.4 fL (7.4-10.4); Monocytes % 8.6 %; Neutrophils # 9.07 10^3/uL (1.8-7.7); Neutrophils % 76.2 %; Nucleated Red Blood Cells % 0 %; Platelet Count 340 10^3/cmm (157-399); Red Blood Count 3.77 10^6/uL (3.85-5.65); Red Cell Distribution Width 13.6 % (12.1-15.1); White Blood Count 11.92 10^3/uL (3.29-11.43)
[2024-06-07 04:57] LABS: Alanine Aminotransferase 44 U/L (0-33); Albumin Level 2.7 g/dL (3.5-5.2); Alkaline Phosphatase 99 U/L (35-105); Anion Gap 13.7 (5-19); Aspartate Amino Transferase 27 U/L (0-32); Blood Urea Nitrogen 32 mg/dL (8-23); Calcium 7.9 mg/dL (8.5-10.5); Carbon Dioxide 26 mmol/L (22-29); Chloride 102 mmol/L (98-107); Creatinine Clr Calc Pharmacy 59.0127; Globulin 2.5 g/dL (1.3-4.6); Glucose 116 mg/dL (65-115); Osmolality Calculated 294 mOsm/kg (285-295); Potassium 3.7 mmol/L (3.5-5.1); Sodium 138 mmol/L (136-145); Total Bilirubin 0.8 mg/dL (0.15-1.2); Total Protein 5.2 g/dL (6.6-8.7)
[2024-06-07 05:07] LABS: NT Pro B Type Natriuretic Pept 279 pg/mL (0-450); Procalcitonin 0.07 ng/mL (0-0.5)
[2024-06-07] MEDS: enoxaparin 40 mg/0.4 mL Syringe SUBCUT (05:11)
[2024-06-07 05:18] LABS: C Reactive Protein 18.1 mg/L (0.0-4.9)
[2024-06-07] MEDS: aspirin 81 mg EC Tablet PO (08:29)
[2024-06-07] MEDS: predniSONE 20 mg Tablet 40 MG PO (08:30)
[2024-06-07] MEDS: guaiFENesin 600 mg Tablet PO ×2 (08:30→17:18)
[2024-06-07] MEDS: atorvastatin 40 mg Tablet 20 MG PO (08:30)
[2024-06-07] MEDS: meropenem 1,000 mg SDV 1000 MG IVP ×2 (08:31→15:02)
[2024-06-07] MEDS: albuterol 2.5 mg/3 mL Neb INHALATION (08:45)
--- NOTE | 2024-06-07 16:12 | P.PN_ITS ---
Subjective 2 Subjective: Patient was seen this morning, she does report that she needs up to 10 L with exertion, but she feels that she is able to compensate she feels like she can handle it out at home, discussed watching her in the hospital for the last 24 hours giving her time, de-escalating her antibiotics will do another CT angiogram of the chest, she is in agreement Vitals/I&O/Wt Last Vital Signs Temp 98.1 F 06/07/24 11:46 Pulse 111 H 06/07/24 11:46 Resp 19 H 06/07/24 11:46 BP 120/61 06/07/24 11:46 Pulse Ox 93 06/07/24 11:46 O2 Del Method Nasal Cannula 06/07/24 11:46 O2 Flow Rate 5 06/07/24 08:47 06/07/24 06/07/24 06/07/24 06:59 14:59 22:59 Intake Total 480 / 780 600 / 600 300 / 900 Balance 480 / 780 600 / 600 300 / 900 Weight last 48 hrs Weight 77.61 kg Weight 76.657 kg Physical Exam 2 Const: COMMON NORMALS: no acute distress and patient oriented x3 Resp: COMMON NORMALS: normal respiratory effort, No retractions, No use of accessory muscles and clear to auscultation bilaterally AUSCULTATION: clear to auscultation bilaterally Cardio: COMMON NORMALS: regular rate, regular rhythm, S1 normal heart sound present and S2 normal heart sound present RATE: regular rate RHYTHM: r egular rhythm HEART SOUNDS: S1 normal heart sound present and S2 normal heart sound present GI: COMMON NORMALS: Normal to inspection, nondistended, normoactive bowel sounds present and non-tender Extremity: COMMON NORMALS: no pedal edema Neuro: COMMON NORMALS: patient oriented x3 Psych: COMMON NORMALS: mental status grossly normal Data 06/07/24 04:32 06/07/24 04:32 Micro: Microbiology 06/04/24 16:34 Gram Stain - Final Sputum - Expectorated Sputum Sputum Culture - Final A&P Assessment and plan (1) Pneumonia: (2) Hypoxemia: (3) Sepsis: (4) Acute hypoxic respiratory failure: (5) Transaminitis: Plan Acute hypoxic respiratory failure -Secondary to pneumonia -Now with concerns for acute respiratory distress given increased oxygen requirements, -With sepsis, sepsis features met given tachycardia, febrile, elevated lactic acid, resolved -With transaminitis -Now evidence of acute respiratory failure, hypoxic episodes, tachycardic episodes with minimal exertion Plan -Move to medical floors, currently on 6 L, with episodes of tachycardia and hypoxia with minimal exertion -Monitor respiratory status closely -Order venous ultrasound lower extremity negative for DVT, CTA on admission did not show any evidence of PE she is on Lovenox for DVT prophylaxis -D-dimer trending downwards -No significant delta troponin -Meropenem -Zyvox -Blood cultures -Respiratory eval, within normal limits -CT angiogram the chest CT/CT angio chest PE protcl [id number] IMPRESSION: 1. No pulmonary emboli. 2. Patchy peripheral consolidations throughout both lungs with a lower lobe predominance which while nonspecific can be seen in the setting of viral infection. -DuoNeb -Full code -Lovenox for DVT prophylaxis Sinus tachycardia, will consider beta-tristian based on clinical progress Syncopal episode -CT head no acute findings -Carotid artery ultrasound US/CV carotid duplex BI* [id number] IMPRESSION: 1. Less than 50% stenosis identified in the right internal carotid artery. 2. Less than 50% stenosis in the left internal carotid artery. 3. Bilateral antegrade flow in the bilateral vertebral arteries. 4. Suspected 1.6 cm left thyroid nodule recommend follow-up with non emergent thyroid ultrasound. -Cardiac echo CONCLUSIONS LV systolic function is normal with EF of 55-60% Mild mitral regurgitation Mild tricuspid regurgitation Mild pulmonary hypertension No comparison studies are available. -Telemetry monitoring Transaminitis, monitor LFTs, acute hep panel within normal limits Sepsis secondary to pneumonia as above Plan for today persistent hypoxia upon exertion, requires up to 10 L, becomes tachycardic, continue oxygen therapy, de-escalate steroids de-escalate antibiotics repeat CAT scan of the lungs with IV contrast to rule out pulmonary embolism on anticoagulant therapy DVT prophylaxis Lovenox PDMP PDMP Reviewed: Not Reviewed Attestations 2 Medical Necessity Statement*: Patient requires hospitalization for acute hypoxic respiratory failure, acute respiratory distress Diagnoses Pneumonia J18.9 Hypoxemia R09.02 Sepsis A41.9 Acute hypoxic respiratory failure J96.01 Transaminitis R74.01
--- NOTE | 2024-06-07 16:12 | CTR_ITS ---
PROCEDURE INFORMATION: Exam: CTA Chest With Contrast Exam date and time: 06/07/2024 8:39 PM Age: 78 years old Clinical indication: Shortness of breath; Additional info: Persistent hypoxia, SOB with exertion TECHNIQUE: Imaging protocol: Computed tomographic angiography of the chest with contrast. Exam focused on the arteries. 3D rendering (Not supervised by radiologist): MIP and/or 3D reconstructed images were created by the technologist. Radiation optimization: All CT scans at this facility use at least one of these dose optimization techniques: automated exposure control; mA and/or kV adjustment per patient size (includes targeted exams where dose is matched to clinical indication); or iterative reconstruction. Contrast material: OMNI 350; Contrast volume: 60 ml; Contrast route: INTRAVENOUS (IV); COMPARISON: CT angio chest PE protcl [id number] 05/31/2024 5:14 PM RADIATION DOSE METRICS: Total DLP (mGy-cm): 352.62 FINDINGS: Pulmonary arteries: Small nonocclusive thrombus/embolus in posteromedial subsegmental right lower lobe branch (series 8, image 298). No other pulmonary arterial filling defect. No evidence of RV strain. Aorta: Unremarkable. No aortic aneurysm. No aortic dissection. Thyroid: Mildly enlarged thyroid gland. 1.3 cm hypodense nodule in the left lobe. Lungs: Moderate-extensive multifocal pneumonic consolidation most pronounced in the bilateral lower lobes associated with air bronchograms. Mild patchy ground-glass consolidation present in the lobes and right middle lobe. Pleural spaces: Unremarkable. No pneumothorax. No pleural effusion. Heart: Unremarkable. No cardiomegaly. No pericardial effusion. Coronary arteries: Minimal coronary calcification. Lymph nodes: Mild paratracheal, prevascular and hilar adenopathy is likely reactive. Diaphragm: Small hiatal hernia. Liver: Mild diffuse hepatic steatosis and features of early cirrhosis noted. Gallbladder and biliary ducts: Cholecystectomy clips. No biliary dilatation. Kidneys: 1.9 cm left renal parapelvic cyst. Bones/joints: [id number] multilevel degenerative thoracic spondylosis. Remote fracture deformity of the right lateral 6th rib. Soft tissues: Unremarkable. CT/CT angio chest PE protcl [id number] IMPRESSION: 1. Tiny nonocclusive thrombus / embolus in subsegmental right lower lobe branch. No other pulmonary emboli identified. 2. Moderate-extensive pneumonic consolidation in the bilateral lower lobes and to a lesser extent in the upper lobes, slightly increased from 05/31/2024. 3. Thyromegaly . Hypodense 1.3 cm left lobe nodule nonemergent sonographic follow-up suggested. 4. Suggestion of early hepatic cirrhosis. COMMENTS: 1. Consistent with the [employer]'s Incidental Findings Committee white paper (J [employer] Mo Radiol 2018): Any incidental renal lesion less than 1 cm or classified as too small to characterize, or any incidental cystic renal lesion characterized as simple-appearing, is likely benign. No follow-up imaging is recommended for these lesions per consensus recommendations based on imaging criteria. 2. Consistent with the [employer]'s Incidental Findings Committee white paper ([employer] Radiol 2015): In patients aged 35 years and older with an incidental thyroid nodule equal to or greater than 1.[address], MRI or extrathyroidal US, further evaluation with dedicated thyroid US is recommended for patients with normal life expectancy and without comorbidities. For smaller nodules without suspicious features, no further evaluation or follow up is recommended.
[2024-06-07] MEDS: sodium chloride 0.9% 1,000 ML 50 ML IV (17:18)
[2024-06-07] MEDS: doxycycline 100 mg Tablet PO (17:18)
[2024-06-07 18:00] LABS: Aspergillus AG,EIA,Serum NOT DETECTED; Aspergillus Galactomannan Inde <0.50
[2024-06-07] MEDS: iohexol 350 mg/mL 500 mL Btl (per mL) IV (20:37)
[2024-06-07] MEDS: pantoprazole 40 mg SDV IVP (21:34)
[2024-06-07] MEDS: enoxaparin 40 mg/0.4 mL Syringe 80 MG SUBCUT (23:32)
[2024-06-08] VITALS (15 sets, daily range): BP systolic 108–124; BP diastolic 60–84; PULSE 83–122; RESP 15–20; TEMP 36.6–37; O2SAT 90–100; BMI 31.3
[2024-06-08 06:01] LABS: Basophils % 0.3 %; Eosinophils # 0.1 10^3/uL (0.0-0.8); Eosinophils % 0.5 %; Hematocrit 36.8 % (36-47); Lymphocytes # 1.7 10^3/uL (0.8-4.8); Lymphocytes % 14.1 %; Mean Corpuscular HGB Conc 30.7 g/dL (30-55); Mean Corpuscular Hemoglobin 29.5 pg (27-33); Mean Corpuscular Volume 96.1 fl (85-98); Mean Platelet Volume 9.9 fL (7.4-10.4); Monocytes # 1.1 10^3/uL (0.2-0.9); Monocytes % 9.1 %; Neutrophils # 8.92 10^3/uL (1.8-7.7); Neutrophils % 74.2 %; Nucleated Red Blood Cells % 0 %; Platelet Count 286 10^3/cmm (157-399); Red Blood Count 3.83 10^6/uL (3.85-5.65); Red Cell Distribution Width 13.5 % (12.1-15.1)
[2024-06-08 06:24] LABS: Alanine Aminotransferase 35 U/L (0-33); Albumin Level 2.7 g/dL (3.5-5.2); Alkaline Phosphatase 91 U/L (35-105); Aspartate Amino Transferase 22 U/L (0-32); Blood Urea Nitrogen 21 mg/dL (8-23); Calcium 8.2 mg/dL (8.5-10.5); Carbon Dioxide 25 mmol/L (22-29); Chloride 105 mmol/L (98-107); Creatinine Clr Calc Pharmacy 57.7135; Globulin 2.2 g/dL (1.3-4.6); Glucose 85 mg/dL (65-115); Osmolality Calculated 290 mOsm/kg (285-295); Sodium 139 mmol/L (136-145); Total Protein 4.9 g/dL (6.6-8.7)
[2024-06-08 06:26] LABS: NT Pro B Type Natriuretic Pept 213 pg/mL (0-450); Procalcitonin 0.06 ng/mL (0-0.5)
[2024-06-08 06:36] LABS: C Reactive Protein 19.4 mg/L (0.0-4.9)
[2024-06-08] MEDS: predniSONE 20 mg Tablet 40 MG PO (08:31)
[2024-06-08] MEDS: aspirin 81 mg EC Tablet PO (08:32)
[2024-06-08] MEDS: guaiFENesin 600 mg Tablet PO ×2 (08:32→16:33)
[2024-06-08] MEDS: doxycycline 100 mg Tablet PO (08:32)
[2024-06-08] MEDS: atorvastatin 40 mg Tablet 20 MG PO (08:32)
[2024-06-08] MEDS: albuterol 2.5 mg/3 mL Neb INHALATION ×3 (08:44→14:56)
--- NOTE | 2024-06-08 10:34 | PC.SOCIAL ---
IMM Update pg 2 of IMM Updated and reviewed w/ patient. Copy provided and copy dated, initialed and placed in chart.
[2024-06-08] MEDS: enoxaparin 40 mg/0.4 mL Syringe 80 MG SUBCUT ×2 (11:59→22:30)
[2024-06-08] MEDS: levoFLOXacin 750 mg Tablet PO (11:59)
--- NOTE | 2024-06-08 16:37 | P.PN_ITS ---
Subjective 2 Subjective: Patient was seen this morning, discussed CT angiogram of the chest findings, her tiny nonocclusive thrombus embolus in the subsegmental right lower lobe, other findings of more extensive pneumonic consolidation in the bilateral lower lobes and to a lesser extent in the upper lobes, she was on 10 L this morning, she had gone up to use the bathroom, heart rates in the 110s, sinus rhythm, O2 sats in the low 90s, during our conversation they do drop into the high 80s, discussed watching her closely in the hospital, Cyndi expresses her frustration about being here in the hospital, discussed morbidity and mortality associate with her hypoxia upon exertion, her compensation, evidence of acute respiratory distress, pulmonary embolism, I am worried about her going home and having a respiratory failure, morbidity and mortality associated she understands this but she tells me that she is ready to leave the hospital, and is frustrated about being here for such a prolonged period of time, discussed acute respiratory distress syndrome in detail, her pneumonia in detail, pulm embolism, and that it would take time for her lungs to heal, but she is quite frustrated, Vitals/I&O/Wt Last Vital Signs Temp 98.6 F 06/08/24 15:52 Pulse 108 H 06/08/24 15:52 Resp 16 06/08/24 15:52 BP 111/65 06/08/24 15:52 Pulse Ox 100 06/08/24 15:52 O2 Del Method Nasal Cannula 06/08/24 15:52 O2 Flow Rate 8 06/08/24 14:58 06/08/24 06/08/24 06/08/24 06:59 14:59 22:59 Intake Total 480 / 480 Balance 480 / 480 Weight last 48 hrs Weight 77.621 kg Weight 77.61 kg Physical Exam 2 Const: COMMON NORMALS: no acute distress and patient oriented x3 Resp: COMMON NORMALS: normal respiratory effort, No retractions and No use of accessory muscles AUSCULTATION: wheezes Cardio: COMMON NORMALS: regular rate, regular rhythm, S1 normal heart sound present and S2 normal heart sound present RATE: regular rate RHYTHM: r egular rhythm HEART SOUNDS: S1 normal heart sound present and S2 normal heart sound present GI: COMMON NORMALS: Normal to inspection, nondistended, normoactive bowel sounds present and non-tender Extremity: COMMON NORMALS: no pedal edema Neuro: COMMON NORMALS: patient oriented x3 Psych: COMMON NORMALS: mental status grossly normal Data 06/08/24 05:42 06/08/24 05:42 A&P Assessment and plan (1) Pneumonia: (2) Hypoxemia: (3) Sepsis: (4) Acute hypoxic respiratory failure: (5) Transaminitis: (6) Pulmonary embolism: Plan Acute hypoxic respiratory failure -Secondary to pneumonia -Now with pulmonary embolism, this happened while patient was on DVT prophylaxis Lovenox -Now with concerns for acute respiratory distress given increased oxygen requirements, -With sepsis, sepsis features met given tachycardia, febrile, elevated lactic acid, resolved -With transaminitis resolving -Now evidence of acute respiratory failure, hypoxic episodes, tachycardic episodes with minimal exertion Plan -Move to medical floors, currently on 10 L -Monitor respiratory status closely - CT/CT angio chest PE protcl [id number] IMPRESSION: 1. Tiny nonocclusive thrombus / embolus in subsegmental right lower lobe branch. No other pulmonary emboli identified. 2. Moderate-extensive pneumonic consolidation in the bilateral lower lobes and to a lesser extent in the upper lobes, slightly increased from 05/31/2024. -Blood cultures negative -Respiratory eval, within normal limits -De-escalate to Levaquin -On therapeutic Lovenox -DuoNeb -Full code -Lovenox for DVT prophylaxis Sinus tachycardia, will consider beta-tristian based on clinical progress Syncopal episode -CT head no acute findings -Carotid artery ultrasound US/CV carotid duplex BI* [id number] IMPRESSION: 1. Less than 50% stenosis identified in the right internal carotid artery. 2. Less than 50% stenosis in the left internal carotid artery. 3. Bilateral antegrade flow in the bilateral vertebral arteries. 4. Suspected 1.6 cm left thyroid nodule recommend follow-up with non emergent thyroid ultrasound. -Cardiac echo CONCLUSIONS LV systolic function is normal with EF of 55-60% Mild mitral regurgitation Mild tricuspid regurgitation Mild pulmonary hypertension No comparison studies are available. -Telemetry monitoring Transaminitis, monitor LFTs, acute hep panel within normal limits Sepsis secondary to pneumonia as above, resolved Plan for today continue therapeutic Lovenox, oxygen therapy, de-escalate to Levaquin, monitor respiratory status closely PDMP PDMP Reviewed: Not Reviewed Attestations 2 Medical Necessity Statement*: Patient requires hospitalization acute hypoxic respiratory failure, acute respiratory distress, pulmonary embolism, pneumonia, sinus tachycardia Diagnoses Pneumonia J18.9 Hypoxemia R09.02 Sepsis A41.9 Acute hypoxic respiratory failure J96.01 Transaminitis R74.01 Pulmonary embolism I26.99
[2024-06-08 17:35] LABS: Fungitell 1-3-B Glucan Assay <31 pg/ml; Interpretation Negative (Negative)
[2024-06-09] VITALS (8 sets, daily range): BP systolic 108–132; BP diastolic 63–81; PULSE 85–106; RESP 16–18; TEMP 36.5–36.8; O2SAT 84–99
[2024-06-09] MEDS: levoFLOXacin 750 mg Tablet PO (05:06)
[2024-06-09 05:10] LABS: Basophils % 0.1 %; Eosinophils # 0.1 10^3/uL (0.0-0.8); Eosinophils % 0.5 %; Hematocrit 33.3 % (36-47); Lymphocytes # 1.8 10^3/uL (0.8-4.8); Lymphocytes % 19.4 %; Mean Corpuscular HGB Conc 31.5 g/dL (30-55); Mean Corpuscular Hemoglobin 29.7 pg (27-33); Mean Corpuscular Volume 94.3 fl (85-98); Mean Platelet Volume 9.5 fL (7.4-10.4); Monocytes # 0.8 10^3/uL (0.2-0.9); Monocytes % 9.2 %; Neutrophils # 6.34 10^3/uL (1.8-7.7); Neutrophils % 69.1 %; Nucleated Red Blood Cells % 0 %; Platelet Count 218 10^3/cmm (157-399); Red Blood Count 3.53 10^6/uL (3.85-5.65); Red Cell Distribution Width 13.6 % (12.1-15.1); White Blood Count 9.18 10^3/uL (3.29-11.43)
[2024-06-09 05:26] LABS: Alanine Aminotransferase 30 U/L (0-33); Albumin Level 2.5 g/dL (3.5-5.2); Alkaline Phosphatase 76 U/L (35-105); Anion Gap 9.9 (5-19); Aspartate Amino Transferase 17 U/L (0-32); Blood Urea Nitrogen 20 mg/dL (8-23); Calcium 8.3 mg/dL (8.5-10.5); Carbon Dioxide 26 mmol/L (22-29); Chloride 105 mmol/L (98-107); Creatinine Clr Calc Pharmacy 57.4864; Globulin 2.5 g/dL (1.3-4.6); Glucose 90 mg/dL (65-115); Osmolality Calculated 286 mOsm/kg (285-295); Potassium 3.9 mmol/L (3.5-5.1); Sodium 137 mmol/L (136-145); Total Bilirubin 0.9 mg/dL (0.15-1.2)
[2024-06-09] MEDS: pantoprazole DR 40 mg Tablet PO (09:00)
[2024-06-09] MEDS: aspirin 81 mg EC Tablet PO (09:00)
[2024-06-09] MEDS: atorvastatin 40 mg Tablet 20 MG PO (09:00)
[2024-06-09] MEDS: potassium chloride ER 10 mEq Tablet PO (09:00)
[2024-06-09] MEDS: guaiFENesin 600 mg Tablet PO ×2 (09:00→17:03)
[2024-06-09] MEDS: predniSONE 20 mg Tablet 40 MG PO (09:00)
[2024-06-09] MEDS: albuterol 2.5 mg/3 mL Neb INHALATION (09:21)
[2024-06-09] MEDS: FUROsemide 40 mg Tablet PO (09:25)
[2024-06-09] MEDS: enoxaparin 40 mg/0.4 mL Syringe 80 MG SUBCUT (10:32)
--- NOTE | 2024-06-09 10:49 | P.DS_ITS ---
Discharge Providers Date of Admission: 05/31/24 18:48 Date of Discharge: June 09, 2024 Attending Provider at Admission: Hermann Santoyo MD Attending Provider at Discharge: Hermann Santoyo MD Primary Care Provider: Willi Olsen MD Diagnoses at Discharge Discharge Diagnosis (1) Pneumonia: Status: Acute (2) Hypoxemia: Status: Acute (3) Sepsis: Status: Acute (4) Acute hypoxic respiratory failure: Status: Acute (5) Transaminitis: Status: Acute (6) Pulmonary embolism: Status: Acute Reason for Visit Reason for Visit: flu like symptoms, SOB Hospital Course Hospital Course Cyndi Robin is a 78 year old female with a past medical history of hypertension, Raynaud's phenomenon who presents [facility] due to weakness, fatigue, nausea, vomiting, diarrhea, shortness of breath, cough. Currently patient alert oriented x 3, following commands, she lives in a splint she lives with her family for the last week she has had a flulike illness, with fevers, cough, chills, fatigue, malaise, diarrhea, nausea. She saw urgent care she was diagnosed with the flu but not started on any treatment presumably as she was out of the window for treatment, started on antibiotics for possible pneumonia given cough medication. However symptomatology persisted with persistent cough, shortness of breath fatigue, malaise fevers and chills. Denies any dysuria, hematuria, no flank pain, does report lightheadedness and d izziness. She reports 2 episodes of feeling dizzy 1 episode in which she syncopized, she felt dizzy and she fell hitting her head against the ground, she has bruising around the right orbit, she does tell me that she passed out during this episode Patient was admitted to [facility] for acute hypoxic respiratory failure, secondary to pneumonia, was managed on broad-spectrum antibiotic therapy, oxygen therapy, required ICU admission due to acute respiratory failure, developing sinus tachycardia, episodes of acute respiratory failure with minimal exertion. Overall patient has showed slow clinical progress, albeit in the positive direction, was moved to medical floors. On medical floors, due to persistently increased oxygen requirements, increased oxygen requirements with exertion, she has likely developed acute respiratory distress syndrome due to persistent increased oxygen requirements up to 10 L with exertion, developing sinus tachycardia with exertion. She was monitored on MedSur, received PT OT, respiratory therapy, and had slow clinical progress. Repeat CT scan showed evidence of tiny nonocclusive thrombus/embolus in the subsegmental right lower lobe branch, this happened on DVT prophylaxis Lovenox. She was subsequently transitioned to therapeutic Lovenox, and monitored for 48 hours. Overall patient has showed slow clinical progress in the positive direct ion, as remained afebrile, on the morning of 06/09/2024 her oxygen requirements have decreased to 2 L, and patient wants to go home I have discussed my reluctance to let her go home due to her increased oxygen requirements upon exertion, and developing sinus tachycardia, and her decreased pulmonary compensation with exertion. Throughout the week, patient with minimal exertion would require up to 10 L, developed sinus tachycardia, and it would take a few minutes to few hours for her to compensate back to her baseline. This has improved but not at the pace that patient would hope, it was my recommendation to give her longer here in the hospital, give her time for her lungs to recuperate before letting her go home given her acute respiratory distress syndrome. My concern I have making made it clear to patient is her risk of pulmonary and cardiovascular decompensation , and morbidity and and mortality associated; however patient is adamant about going home, 06/09/2024 she is down to 2 L during our discussions her O2 sats do drop into 89's, heart rates do increase into the 120s sinus tachycardia, but she is relatively asymptomatic. She tells me she was able to get up to the bathroom without any significant symptomatology. We discussed potentially going to a long-term care facility however she is adamant about going home. Discussed with her the morbidity and mortality associated with her lung condition, with acute respiratory failure, acute respiratory distress syndrome, her pneumonia, her pulmonary embolism however she is adamant about going home. Will discharge patient home, with albuterol, Eliquis, Levaquin, with close follow-up with primary care provider as outpatient. Follow-up with pulmonary in 1 month. Patient was advised to ambulate with care, take frequent breaks and stops, to compensate for her exertion. Throughout her admission I have implored my concern for her decompensation, risk of acute respiratory failure with exertion, she voices understanding, all questions answered, but is adamant about going home. Nonetheless patient was advised if she has sudden onset shortness of breath, to call 911, go to the emergency room. Physical Exam Const: COMMON NORMALS: no acute distress and patient oriented x3 Resp: COMMON NORMALS: normal respiratory effort, No retractions, No use of accessory muscles and clear to auscultation bilaterally AUSCULTATION: clear to auscultation bilaterally Cardio: COMMON NORMALS: regular rate, regular rhythm, S1 normal heart sound present and S2 normal heart sound present RATE: regular rate RHYTHM: regular rhythm HEART SOUNDS: S1 normal heart sound present and S2 normal heart sound present GI: COMMON NORMALS: Normal to inspection, nondistended, normoactive bowel sounds present and non-tender Extremity: COMMON NORMALS: no pedal edema Neuro: COMMON NORMALS: patient oriented x3 Psych: COMMON NORMALS: mental status grossly normal Discharge Data Studies Completed and Pending Completed Studies During Hospitalization Category Date Time Status CT angio chest PE protcl [id number] Routine Cat Scan 06/07/24 16:[address] angio chest PE protcl [id number] Stat Cat Scan 05/31/24 16:[address] head wo con* [id number] Stat Cat Scan 05/31/24 23:30 Completed XR chest 1V portable [id number] Routine Exams 06/04/24 08:38 Completed XR chest 1V portable [id number] Routine Exams 06/06/24 07:00 Completed XR chest 1V portable [id number] Stat Exams 05/31/24 14:48 Completed XR chest 1V portable [id number] Stat Exams 06/02/24 08:33 [place] [id number] Routine Ultrasound 06/02/24 12:49 Completed CV. echo complete* [id number] Stat Ultrasound 05/31/24 17:26 Completed US abdomen limited [id number] Routine Ultrasound 06/01/24 08:19 Completed US carotid duplex bilateral [CV carotid duplex BI* Ultrasound 05/31/24 17:31 Completed [id number]] Stat Pending at discharge Category Date Time Status Bacterial Antigen Stat Lab 06/04/24 08:41 Uncollected Radiology Impressions Carotid Doppler Study 05/31/24 17:31 IMPRESSION: 1. Less than 50% stenosis identified in the right internal carotid artery. 2. Less than 50% stenosis in the left internal carotid artery. 3. Bilateral antegrade flow in the bilateral vertebral arteries. 4. Suspected 1.6 cm left thyroid nodule recommend follow-up with non emergent thyroid ultrasound. REFERENCES: SRU CRITERIA. The degree of internal carotid artery stenosis is based on criteria defined by the Society of Radiologists in Ultrasound (SRU). Normal is no stenosis. Mild is less than 50% stenosis. Moderate is 50-69% stenosis. Severe is greater than 69% stenosis to near occlusion. Near occlusion is a markedly narrowed lumen. Total occlusion is no detectable patent lumen. Head CT 05/31/24 23:30 IMPRESSION: 1. No acute intracranial abnormality. 2. Small-vessel ischemic disease. Abdomen Ultrasound 06/01/24 08:19 IMPRESSION: 1. Technically difficult RIGHT upper quadrant ultrasound. 2. Prior cholecystectomy. 3. No hepatobiliary dilatation. 4. Negative liver. Venous Duplex 06/02/24 12:49 IMPRESSION: No evidence of deep vein thrombosis. Chest X-Ray 06/06/24 07:00 IMPRESSION: Stable bibasilar atelectasis/pneumonitis versus edema, [id number]. Chest CTA 06/07/24 16:12 IMPRESSION: 1. Tiny nonocclusive thrombus / embolus in subsegmental right lower lobe branch. No other pulmonary emboli identified. 2. Moderate-extensive pneumonic consolidation in the bilateral lower lobes and to a lesser extent in the upper lobes, slightly increased from 05/31/2024. 3. Thyromegaly . Hypodense 1.3 cm left lobe nodule nonemergent sonographic follow-up suggested. 4. Suggestion of early hepatic cirrhosis. COMMENTS: 1. Consistent with the [place] [employer]'s Incidental Findings Committee white paper (J Am Mo Radiol 2018): Any incidental renal lesion less than 1 cm or classified as too small to characterize, or any incidental cystic renal lesion characterized as simple-appearing, is likely benign. No follow-up imaging is recommended for these lesions per consensus recommendations based on imaging criteria. 2. Consistent with the [place] [employer]'s Incidental Findings Committee white paper (J Am Mo Radiol 2015): In patients aged 35 years and older with an incidental thyroid nodule equal to or greater than 1.[address], MRI or extrathyroidal US, further evaluation with dedicated thyroid US is recommended for patients with normal life expectancy and without comorbidities. For smaller nodules without suspicious features, no further evaluation or follow up is recommended. ADDENDUM: 06/07/24 [id number] COMMENT: THIS REPORT CONTAINS FINDINGS THAT MAY BE CRITICAL TO PATIENT CARE. The exam findings were verbally communicated by me to Dr. Arcos via telephone conference at 10:02 PM MECHANOTHERAPIST on 06/07/2024. The findings were acknowledged and understood. Laboratory Results WBC 9.18 10^3/uL (3.29-11.43) 06/09/24 04:55 RBC 3.53 10^6/uL (3.85-5.65) L 06/09/24 04:55 Hgb 10.50 g/dL (11.27-16.99) L 06/09/24 04:55 Hct 33.3 % (36-47) L 06/09/24 04:55 MCV 94.3 fl (85-98) 06/09/24 04:55 MCH 29.7 pg (27-33) 06/09/24 04:55 MCHC 31.5 g/dL (30-55) 06/09/24 04:55 RDW 13.6 % (12.1-15.1) 06/09/24 04:55 Plt Count 218 10^3/cmm (157-399) 06/09/24 04:55 MPV 9.5 fL (7.4-10.4) 06/09/24 04:55 Neut % (Auto) 69.1 % 06/09/24 04:55 Lymph % (Auto) 19.4 % 06/09/24 04:55 [place] % (Auto) 9.2 % 06/09/24 04:55 Eos % (Auto) 0.5 % 06/09/24 04:55 Baso % (Auto) 0.1 % 06/09/24 04:55 Neut # (Auto) 6.34 10^3/uL (1.8-7.7) 06/09/24 04:55 Lymph # (Auto) 1.8 10^3/uL (0.8-4.8) 06/09/24 04:55 [place] # (Auto) 0.8 10^3/uL (0.2-0.9) 06/09/24 04:55 Eos # (Auto) 0.1 10^3/uL (0.0-0.8) 06/09/24 04:55 Baso # (Auto) 0.0 10^3/uL (0.0-0.1) 06/09/24 04:55 Nucleated RBC % (auto) 0 % 06/09/24 04:55 Nucleated RBCs # 0.0 /100WBC 06/09/24 04:55 ESR 43 mm/hr (0-15) H 06/04/24 03:16 PT 14.50 SECONDS (12.1-14.9) 06/01/24 03:34 INR 1.05 (0.8-1.2) 06/01/24 03:34 D-Dimer 2.10 ug/mLFEU (0-0.59) H 06/06/24 17:47 Specimen Type Arterial 06/02/24 08:35 Sample Site Brachial, left 06/02/24 08:35 ABG pH 7.47 (7.35-7.45) H 06/02/24 08:35 ABG pCO2 35.5 mmHg (35-45) 06/02/24 08:35 ABG pO2 62.8 mmHg (80.0-100.0) L 06/02/24 08:35 ABG PO2/FiO2 Ratio 207 05/31/24 15:02 ABG HCO3 25.6 mmol/L (22-26) 06/02/24 08:35 ABG O2 Saturation 93.9 06/02/24 08:35 ABG Base Excess 2.0 mmol/L (-2.0-2.0) 06/02/24 08:35 Wilber Test N/a 06/02/24 08:35 A-a O2 Gradient 5.8 mmHg (5-10) 06/02/24 08:35 Hematocrit 37.4 % (37-47) 06/02/24 08:35 Hgb O2 Saturation 92.2 % (95-100) L 06/02/24 08:35 Carboxyhemoglobin 0.9 %THgb (0.4-20.1) 06/02/24 08:35 Methemoglobin 1.0 % (0.4-1.5) 06/02/24 08:35 Total Hemoglobin 12.2 g/dL (12-16) 06/02/24 08:35 Sodium 137.0 mmol/L (131-143) 06/02/24 08:35 Potassium 3.8 mmol/L (3.5-5.0) 06/02/24 08:35 Glucose 117.0 mg/dL (70-115) H 06/02/24 08:35 Ionized Calcium 1.2 mmol/L (1.1-1.4) 06/02/24 08:35 O2 Delivery Device Oxy mask 06/02/24 08:35 O2 Liters/Min 14.0 % 06/02/24 08:35 FiO2 24.0 % 05/31/24 15:02 Fluid Pump Operator ID Ed 06/02/24 08:35 Sodium 137 mmol/L (136-145) 06/09/24 04:55 Potassium 3.9 mmol/L (3.5-5.1) 06/09/24 04:55 Chloride 105 mmol/L (98-107) 06/09/24 04:55 Carbon Dioxide 26 mmol/L (22-29) 06/09/24 04:55 Anion Gap 9.9 (5-19) 06/09/24 04:55 BUN 20 mg/dL (8-23) 06/09/24 04:55 Creatinine 0.4 mg/dL (0.5-0.9) L 06/09/24 04:55 GFR Calculation Not Reportable 06/09/24 04:55 Glucose 90 mg/dL (65-115) 06/09/24 04:55 Estimat Average Glucose 117 05/31/24 15:16 Hemoglobin A1c 5.7 % (4.0-6.0) 05/31/24 15:16 Calculated Osmolality 286 mOsm/kg (285-295) 06/09/24 04:55 Lactic Acid 2.5 mmol/L (0.5-2.2) H 05/31/24 15:16 Lactic Acid (Sepsis) 1.6 mmol/L (0.5-2.2) 05/31/24 18:13 Calcium 8.3 mg/dL (8.5-10.5) L 06/09/24 04:55 Phosphorus 2.9 mg/dL (2.5-4.5) 06/03/24 00:15 Magnesium 1.8 mg/dL (1.7-2.3) 06/03/24 00:15 Total Bilirubin 0.9 mg/dL (0.15-1.2) 06/09/24 04:55 AST 17 U/L (0-32) 06/09/24 04:55 ALT 30 U/L (0-33) 06/09/24 04:55 Alkaline Phosphatase 76 U/L (35-105) 06/09/24 04:55 Lactate Dehydrogenase 577 U/L (135-214) H 06/04/24 03:16 Troponin T 5th Gen ng/L 22 ng/L (0-10) H 06/06/24 16:17 Troponin T Baseline 25 ng/L (0-10) H 06/02/24 18:20 Troponin T 120 Minute 26.29 ng/L (0-10) H 06/02/24 20:08 Delta Troponin T 1.29 ABS# (0-10) 06/02/24 20:08 Troponin T Hi Sens 6Hr 28.76 ng/L (0-10) H 06/03/24 00:15 Troponin T Hi Sens 6Hr Delta 3.76 ng/L (0-12) 06/03/24 00:15 C-Reactive Protein 19.4 mg/L (0.0-4.9) H 06/08/24 05:42 NT-Pro-B Natriuret Pep 213 pg/mL (0-450) 06/08/24 05:42 Total Protein 5.0 g/dL (6.6-8.7) L 06/09/24 04:55 Albumin 2.5 g/dL (3.5-5.2) L 06/09/24 04:55 Globulin 2.5 g/dL (1.3-4.6) 06/09/24 04:55 Procalcitonin 0.06 ng/mL (0-0.5) 06/08/24 05:42 TSH 5.21 uIU/mL (0.27-4.20) H 05/31/24 15:16 Urine Color Yellow (Yellow) 06/01/24 07:15 Urine Appearance Clear (CLEAR) 06/01/24 07:15 Urine pH 5.5 (5-7) 06/01/24 07:15 Ur Specific [place] 1.036 (1.005-1.030) H 06/01/24 07:15 Urine Protein 1+ (Negative) A 06/01/24 07:15 Urine Glucose (UA) Negative (Normal) 06/01/24 07:15 Urine Ketones Negative (Negative) 06/01/24 07:15 Urine Blood Negative (Negative) 06/01/24 07:15 Urine Nitrate Negative (Negative) 06/01/24 07:15 Urine Bilirubin Negative (Negative) 06/01/24 07:15 Urine Urobilinogen 0.2 mg/dL (Negative) 06/01/24 07:15 Ur Leukocyte Esterase Negative (Negative) 06/01/24 07:15 Urine RBC 0-4 /hpf (0-2) H 06/01/24 07:15 Urine WBC 0-4 /hpf (0-5) H 06/01/24 07:15 Ur Squamous Epith Cells 0-4 /hpf (0-5) H 06/01/24 07:15 Amorphous Sediment Not Reportable 06/01/24 07:15 Urine Bacteria 1+ /hpf (NONE) H 06/01/24 07:15 Hyaline Casts 0-4 /lpf H 06/01/24 07:15 C. difficile (PCR) Negative (Negative) 06/04/24 13:30 Hepatitis A IgM Ab Non-reactive (Nonreactive) 06/01/24 03:34 Hep Bs Antigen Non-reactive (Nonreactive) 06/01/24 03:34 Hep B Core IgM Ab Non-reactive (Nonreactive) 06/01/24 03:34 Hepatitis C Antibody Non-reactive (Nonreactive) 06/01/24 03:34 Influenza A (PCR) Negative (Negative) 05/31/24 18:30 Influenza Type B (PCR) Negative (Negative) 05/31/24 18:30 A. galactomannan Ag EIA Not detected 06/04/24 03:16 A. galactomannan Ag Idx <0.50 06/04/24 03:16 RSV (PCR) Negative (Negative) 05/31/24 18:30 SARS-CoV-2 (PCR) Negative (Negative) 05/31/24 18:30 Beta-(1,3)-D-Glucan <31 pg/ml 06/04/24 03:16 B-(1,3)-D-Glucan Intrp Negative (Negative) 06/04/24 03:16 Vitals Last Vital Signs Temp 98.0 F 06/09/24 08:21 Pulse 94 06/09/24 09:25 Resp 16 06/09/24 09:25 BP 130/63 06/09/24 08:21 Pulse Ox 94 06/09/24 09:25 O2 Del Method Nasal Cannula 06/09/24 09:25 O2 Flow Rate 2 06/09/24 09:25 Discharge Plan Discharge Patient Disposition: Home Condition: Stable Prescriptions: New prednisone 20 mg Tablet 40 mg PO DAILY 5 Days Qty: 10 0RF levofloxacin 750 mg Tablet 750 mg PO DAILY@0600 4 Days Qty: 4 0RF Eliquis DVT-PE Treat 30D Start 5 mg (74 tabs) tablets,dose pack See Rx Instructions .ROUTE .COMPLEX Qty: 74 0RF Rx Instructions: start at 9pm tonight orally per package directions albuterol sulfate [Ventolin HFA] 90 mcg/actuation HFA aerosol inhaler 1 inh inhalation Q6H PRN (Reason: shortness of breath or wheezing) Qty: 8.5 0RF Continued aspirin 81 mg tablet,delayed release (DR/EC) 81 mg PO DAILY Qty: 30 0RF atorvastatin 10 mg tablet 10 mg PO DAILY Changed benzonatate 100 mg capsule 100 mg PO TID PRN (Reason: cough) Qty: 30 0RF Discontinued nifedipine 30 mg tablet extended release 30 mg PO DAILY Qty: 30 0RF amoxicillin-pot clavulanate 875-125 mg tablet 1 tab PO Q12H Discharge Orders: Discharge Order (Routine); Ordered 06/09/24 Ordered By: Hermann Santoyo Referrals: [facility] [Outside] Flash Vila MD, MBBS, MPH [Referring] - 1 month (We have notified your physician's clinic of the need for a follow-up appointment to be scheduled. If you have not heard from them within the next 2 business days, please call them directly. SENT REFERRAL) Willi Olsen MD [Primary Care Provider] - 4-7 days (We have notified your physician's clinic of the need for a follow-up appointment to be scheduled. If you have not heard from them within the next 2 business days, please call them directly. FAXED FOR APPOINTMENT) Discharge Diet: Cardiac Discharge Activity: Resume usual activity Patient Instructions: Opioid Safety Activity Restrictions/Additional Instructions: - If you develop bloody or black stools please go to emergency room -Please follow-up with primary care provider next week -Follow-up with pulmonary in 1 month Discharge Attestations Time Spent in Discharge Care*: greater than 30 min Quality Metrics Clinical Quality Measures [ No reported AMI, CVA or VTE this stay] Coding Level of Care Code 24393 Total time (in minutes) for Discharge: 50 Diagnoses Pneumonia J18.9 Hypoxemia R09.02 Sepsis A41.9 Acute hypoxic respiratory failure J96.01 Transaminitis R74.01 Pulmonary embolism I26.99
== END 2024-06-09 17:11 | disposition home health service (06) | DRG 871 ==
LOC: ER 17:01 → ER IP 18:48 → ICU 20:01 → MEDSURG 06-01 19:48
PROVIDERS: Admitting Provider Family Medicine; Emergency Provider Emergency Medicine; PCP Family Medicine; Visit Provider Family Medicine
DX: A41.9 Sepsis, unspecified organism (principal); I26.99 Other pulmonary embolism without acute cor pulmonale; J18.9 Pneumonia, unspecified organism; J96.01 Acute respiratory failure with hypoxia; E87.20 Acidosis, unspecified; E01.0 Iodine-deficiency related diffuse (endemic) goiter; R74.01 Elevation of levels of liver transaminase levels; I10 Essential (primary) hypertension; I73.00 Raynaud's syndrome without gangrene; W18.30XA Fall on same level, unspecified, initial encounter; S05.11XA Contusion of eyeball and orbital tissues, right eye, initial encounter; E86.0 Dehydration; R55 Syncope and collapse; Z79.82 Long term (current) use of aspirin
CPT/HCPCS: 36415; 36600; 70450; 71045; 71275; 76705; 80048; 80051; 80053; 80074; 81001; 82330; 82805; 83036; 83605; 83615; 83735; 83880; 84100; 84145; 84443; 84484; 85025; 85378; 85610; 85651; 86140; 87040; 87070; 87205; 87305; 87449; 87493; 87637; 92526; 92610; 93005; 93306; 93880; 93970; 94640; 94664; 94760; 94762; 96365; 96372; 96375; 99285; J0131; J1650; J1940; J2020; J2185; J2470; J2919; J7030; J7512; J7613

== ENCOUNTER → 2024-07-17 08:37 | Outpatient (BNVA) | payer OTHER, SELFPAY | PROVIDERS: PCP Family Medicine; Visit Provider Internal Medicine Rheumatology | DX: M13.0 Polyarthritis, unspecified (principal); Z79.899 Other long term (current) drug therapy; Z71.85 Encounter for immunization safety counseling; I26.99 Other pulmonary embolism without acute cor pulmonale; I73.00 Raynaud's syndrome without gangrene | CPT/HCPCS: 36415; 82306; 83520; 86200; 86431; 86480; 99204 ==

== ENCOUNTER 2024-07-20 10:06 | Emergency (ER) | payer OTHER, SELFPAY ==
[2024-07-20 10:14] VITALS: BP 106/67; PULSE 126; RESP 21; TEMP 36.8; O2SAT 90; BMI 26.9
--- NOTE | 2024-07-20 10:39 | CTR_ITS ---
PROCEDURE INFORMATION: Exam: CTA Chest With Contrast Exam date and time: 07/20/2024 12:11 PM Age: 79 years old Clinical indication: Cough; Additional info: HX of pe recently. Still with tachycardia and hypoxia. TECHNIQUE: Imaging protocol: Computed tomographic angiography of the chest with contrast. Exam focused on the arteries. 3D rendering (Not supervised by radiologist): MIP and/or 3D reconstructed images were created by the technologist. Radiation optimization: All CT scans at this facility use at least one of these dose optimization techniques: automated exposure control; mA and/or kV adjustment per patient size (includes targeted exams where dose is matched to clinical indication); or iterative reconstruction. Contrast material: OMNI 350; Contrast volume: 56 ml; Contrast route: INTRAVENOUS (IV); COMPARISON: CT angio chest PE protcl [id number] 06/07/2024 8:39 PM RADIATION DOSE METRICS: Total DLP (mGy-cm): 256.64 FINDINGS: Pulmonary arteries: No evidence of pulmonary embolus. The very small nonocclusive thrombus to the right lower lobe present before has resolved. Aorta: Unremarkable. No aortic aneurysm. No aortic dissection. Lungs: Calcified granuloma in the lower lobes. Chronic atelectasis or fibrosis and bronchiectasis in each lower lobe, unchanged. Pleural spaces: Unremarkable. No pneumothorax. No pleural effusion. Heart: Trace pericardial effusion. Lymph nodes: Calcified central lymph nodes. Gallbladder and biliary ducts: Cholecystectomy. Bones/joints: Unremarkable. No acute fracture. Soft tissues: Unremarkable. CT/CT angio chest PE protcl [id number] IMPRESSION: 1. No acute intrathoracic pathology. 2. Stable chronic changes and bronchiectasis in each lung base.
--- NOTE | 2024-07-20 10:39 | XR_ITS ---
WS: [id number] Exam: XR chest 1V portable [id number] Date/Time of Exam: 07/20/2024 10:39 AM Reason For Exam: SOB, hypoxia on exertion Comparison 06/06/2024. There are residual bibasilar infiltrates. There has been improvement since the prior study. The mid and upper lung zones are clear. No pneumothorax or pleural effusion. Normal cardiomediastinal silhouette. Unremarkable bony structures. XR/XR chest 1V portable [id number] IMPRESSION: 1. Residual bibasal infiltrates.
[2024-07-20 10:53] LABS: Basophils # 0.1 10^3/uL (0.0-0.1); Basophils % 0.6 %; Eosinophils % 0.3 %; Hematocrit 34.9 % (36-47); Lymphocytes # 0.4 10^3/uL (0.8-4.8); Lymphocytes % 4.4 %; Mean Corpuscular HGB Conc 30.7 g/dL (30-55); Mean Corpuscular Hemoglobin 29.7 pg (27-33); Mean Corpuscular Volume 96.9 fl (85-98); Mean Platelet Volume 10.3 fL (7.4-10.4); Monocytes # 0.8 10^3/uL (0.2-0.9); Monocytes % 8.3 %; Neutrophils # 8.58 10^3/uL (1.8-7.7); Neutrophils % 85.6 %; Nucleated Red Blood Cells % 0 %; Platelet Count 260 10^3/cmm (157-399); Red Cell Distribution Width 15.5 % (12.1-15.1); White Blood Count 10.02 10^3/uL (3.29-11.43)
[2024-07-20 10:59] LABS: INR 1.38 (0.8-1.2)
[2024-07-20 11:00] VITALS: BP 122/66; PULSE 118; O2SAT 95
[2024-07-20 11:15] LABS: Carbon Dioxide 25 mmol/L (22-29); Chloride 105 mmol/L (98-107); Potassium 3.8 mmol/L (3.5-5.1); Sodium 141 mmol/L (136-145)
[2024-07-20 11:16] LABS: Alanine Aminotransferase 44 U/L (0-33); Albumin Level 3.5 g/dL (3.5-5.2); Alkaline Phosphatase 61 U/L (35-105); Anion Gap 14.8 (5-19); Aspartate Amino Transferase 55 U/L (0-32); Blood Urea Nitrogen 19 mg/dL (8-23); Calcium 8.6 mg/dL (8.5-10.5); Creatinine Clr Calc Pharmacy 54.8687; Globulin 3.3 g/dL (1.3-4.6); Glucose 101 mg/dL (65-115); Magnesium 1.8 mg/dL (1.7-2.3); NT Pro B Type Natriuretic Pept 354 pg/mL (0-450); Osmolality Calculated 294 mOsm/kg (285-295); Total Protein 6.8 g/dL (6.6-8.7)
[2024-07-20 11:23] LABS: ABG PCO2 41.9 mmHg (35-45); ABG PH Result 7.43 (7.35-7.45); Arterial Blood Gas Hematocrit 32.8 % (37-47); Base Excess ABG 2.9 mmol/L (-2.0-2.0); Blood Gas Allen Test Pos; Blood Gas LPM 2.5 %; Blood Gas Operator Identificat glc; Blood Gas Sample Site Radial, right; Blood Gas Sample Type Arterial; Carboxyhemoglobin 1.3 %THgb (0.4-20.1); HCO3 ABG 27.6 mmol/L (22-26); HGB O2 Sat 96.4 % (95-100); Methemoglobin 0.2 % (0.4-1.5); Oxygen Device NC; PO2 ABG 88.9 mmHg (80.0-100.0); PO2 FiO2 Ratio Arterial Blood 296; Total Hemoglobin 10.7 g/dL (12-16)
[2024-07-20 11:45] LABS: Influenza A NEGATIVE (Negative); Influenza B NEGATIVE (Negative); Respiratory Syncytial Virus Ce NEGATIVE (Negative)
[2024-07-20 12:05] LABS: SARS-CoV-2 PCR Positive (Negative)
[2024-07-20] MEDS: iohexol 350 mg/mL 500 mL Btl (per mL) IV (12:22)
[2024-07-20 12:30] VITALS: BP 141/79; PULSE 119; O2SAT 98
[2024-07-20 13:00] VITALS: BP 139/81; PULSE 104; O2SAT 100
[2024-07-20] MEDS: lactated ringers 1,000 ML 999 ML IV (13:08)
[2024-07-20 14:00] VITALS: BP 137/81; PULSE 108; O2SAT 100
--- NOTE | 2024-07-20 14:30 | W.ED.SOB ---
HPI - SOB/Dyspnea General: Chief Complaint: Shortness of Breath/Dyspnea Stated Complaint: high heart rate Roylance sent Time Seen by Provider: 07/20/24 10:19 Source: patient and family Mode of arrival: ambulatory Limitations: no limitations History of Present Illness: HPI Narrative: Patient brought in for shortness of breath. At the clinic and was tachycardic and low hypoxic on her baseline O2. Patient normally wears 2.5-3 at home when she is sitting around and turns up to 4 or higher when ambulating. This is a new problem for her since May. No previous lung history. Appears to have some bronchiectasis secondary to influenza pneumonia at that time. She knows that her oxygen use was slightly up as well as increased cough no known fever and so she came to get checked out. Related Data Home Medications ?Medication ?Instructions ?Recorded ?Confirmed atorvastatin 10 mg tablet 10 mg PO QPM 05/31/24 07/20/24 furosemide 20 mg tablet (Lasix) 20 mg PO QAM PRN Edema 07/17/24 07/20/24 potassium chloride 10 mEq 10 meq PO .NOON PRN take if takes 07/17/24 07/20/24 capsule,extended release her lasix apixaban 5 mg tablet (Eliquis) 5 mg PO BID 07/20/24 07/20/24 Previous Rx's ?Medication ?Instructions ?Recorded aspirin 81 mg tablet,delayed 81 mg PO DAILY #30 tabs 05/13/24 release albuterol sulfate 90 mcg/actuation 1 inh inhalation Q6H PRN shortness 06/09/24 aerosol inhaler (Ventolin HFA) of breath or wheezing #8.5 grams benzonatate 100 mg capsule 100 mg PO TID PRN cough #30 caps 06/09/24 folic acid 1 mg tablet 1 mg PO DAILY #30 tabs 07/17/24 methotrexate sodium 2.5 mg tablet 10 mg (4 x 2.5 mg) PO .Q7days #20 07/17/24 tabs prednisone 20 mg tablet See Rx Instructions PO .COMPLEX 07/17/24 PRN joint pain flare #30 tabs prednisone 5 mg tablet 5 mg PO DAILY #30 tabs 07/17/24 cholecalciferol (vitamin D3) 1,250 50,000 unit PO .once a week #15 07/19/24 mcg (50,000 unit) capsule caps nirmatrelvir 300 mg (150 mg See Rx Instructions PO .COMPLEX 07/20/24 x2)-ritonavir 100 mg tablet,dose #30 ea pack (Paxlovid) Allergies Allergy/AdvReac Type Severity Reaction Status Date / Time codeine Allergy ADR-Vomitin Verified 05/31/24 15:01 g Review of Systems General: Reports: 10 or more systems reviewed and unremarkable except in HPI and below PFSH ED PFSH: Medical History Immunization counseling High risk medication use Polyarthritis Raynaud's disease History of hypertension Surgical History History of hysterectomy with bilateral oophorectomy History of cholecystectomy Family History Other Cancer Chronic kidney disease (CKD) Diabetes Heart disease Hypertension Migraines Rheumatoid arthritis Stroke Denies family history of Lupus (systemic lupus erythematosus) Social History Smoking and tobacco/nicotine status: never used tobacco/nicotine Alcohol intake: never Substance/Drug Use: never Physical Exam Const: COMMON NORMALS: no acute distress, average body habitus, patient oriented x3, healthy appearing, alert and well nourished GENERAL APPEARANCE: well kempt and well developed HENMT: COMMON NORMALS: normocephalic, atraumatic, external ears normal and moist oral mucous membranes HEAD & SCALP: normocephalic and atraumatic EXTERNAL EAR: Yes external ears normal Eye: COMMON NORMALS: Equal, round and reactive pupils present, EOMs intact bilaterally and conjunctivae normal CONJUNCTIVA: Yes conjunctivae normal PUPIL: Yes Equal, round and reactive pupils present Neck/C-Spine: COMMON NORMALS: full ROM, no lymphadenopathy and supple Chest: CHEST: Yes Symmetrical chest wall rise and No Surgical scars present (Chest) Resp: COMMON NORMALS: No retractions and No use of accessory muscles EFFORT & INSPECTION: Yes able to speak in complete sentences, Yes symmetric chest movement, Yes tachypneic, No respiratory distress and No labored AUSCULTATION: rhonchi (Course high-pitched rhonchi bilateral bases) Cardio: COMMON NORMALS: regular rhythm, S1 normal heart sound present, S2 normal heart sound present, No gallops present (Cardio), No clicks present (Cardio), No murmurs present (Cardio) and No rub (Cardio) RATE: tachycardic RHYTHM: regular rhythm HEART SOUNDS: S1 normal heart sound present, S2 normal heart sound present and no murmurs PERIPHERAL PULSES: other (Radial pulses 2+ and symmetric) GI: COMMON NORMALS: Soft to palpation, non-tender and no masses INSPECTION: No abdominal distension PALPATION: Yes Soft to palpation, No Guarding due to palpation present (GI) and No Rebound tenderness present : COMMON NORMALS: Yes no CVA tenderness BLADDER/KIDNEY EXAM: Yes no CVA tenderness Back/Pelvis: COMMON NORMALS: no CVA tenderness Extremity: COMMON NORMALS: normal to inspection, full ROM, capillary refill normal and no clubbing, cyanosis or edema Neuro: COMMON NORMALS: patient oriented x3 SENSORIUM/ORIENTATION: Yes alert Psych: APPEARANCE: Yes well kempt Skin: COMMON NORMALS: no rashes or lesions noted, no wounds, turgor normal and no jaundice GENERAL SKIN EXAM: no rashes or lesions noted and turgor normal Course Reevaluation(s): Reevaluation #1: Patient reexamined, informed of COVID result. Patient still tachycardic but breathing comfortably 100% sat on 2.5 L Time: 13:30 Vital Signs: Vital signs: Vital Signs Temperature 98.3 F 07/20/24 10:14 Pulse Rate 108 H 07/20/24 14:00 Respiratory Rate 21 H 07/20/24 10:14 Blood Pressure 137/81 07/20/24 14:00 Pulse Oximetry 100 07/20/24 14:00 Oxygen Delivery Me thod Nasal Cannula 07/20/24 14:00 Oxygen Flow Rate 3 07/20/24 14:00 MDM - SOB/Dyspnea Medical Decision Making Patient with bronchiectasis, new chronic hypoxic resp failure today with increased cough. No increased oxygen need except with exertion. Tachycardic on exam. This is improved with fluids. Patient's COVID test came back positive. Chest x-ray and CT a chest showed no clot and stable bronchiectasis. Patient offered observation admission and declines would like to be discharged. This is reasonable she does have oxygen at home. Patient informed with any worsening to return to the ER immediately. Patient expressed understanding. Differential Diagnosis Likely acute exacerbation of chronic obstructive airways disease, congestive heart failure, community acquired pneumonia and pulmonary embolism Medical Records I reviewed the patient's medical records. Lab Data I reviewed the patient's lab results. 07/20/24 10:35 07/20/24 10:35 Labs/Radiology: Radiology Impressions Chest CTA 07/20/24 10:39 IMPRESSION: 1. No acute intrathoracic pathology. 2. Stable chronic changes and bronchiectasis in each lung base. Chest X-Ray 07/20/24 10:39 IMPRESSION: 1. Residual bibasal infiltrates. Laboratory Results WBC 10.02 10^3/uL (3.29-11.43) 07/20/24 10:35 RBC 3.60 10^6/uL (3.85-5.65) L 07/20/24 10:35 Hgb 10.70 g/dL (11.27-16.99) L 07/20/24 10:35 Hct 34.9 % (36-47) L 07/20/24 10:35 MCV 96.9 fl (85-98) 07/20/24 10:35 MCH 29.7 pg (27-33) 07/20/24 10:35 MCHC 30.7 g/dL (30-55) 07/20/24 10:35 RDW 15.5 % (12.1-15.1) H 07/20/24 10:35 Plt Count 260 10^3/cmm (157-399) 07/20/24 10:35 MPV 10.3 fL (7.4-10.4) 07/20/24 10:35 Neut % (Auto) 85.6 % 07/20/24 10:35 Lymph % (Auto) 4.4 % 07/20/24 10:35 Yancey % (Auto) 8.3 % 07/20/24 10:35 Eos % (Auto) 0.3 % 07/20/24 10:35 Baso % (Auto) 0.6 % 07/20/24 10:35 Neut # (Auto) 8.58 10^3/uL (1.8-7.7) H 07/20/24 10:35 Lymph # (Auto) 0.4 10^3/uL (0.8-4.8) L 07/20/24 10:35 Yancey # (Auto) 0.8 10^3/uL (0.2-0.9) 07/20/24 10:35 Eos # (Auto) 0.0 10^3/uL (0.0-0.8) 07/20/24 10:35 Baso # (Auto) 0.1 10^3/uL (0.0-0.1) 07/20/24 10:35 Nucleated RBC % (auto) 0 % 07/20/24 10:35 Nucleated RBCs # 0.0 /100WBC 07/20/24 10:35 PT 17.80 SECONDS (12.1-14.9) H 07/20/24 10:35 INR 1.38 (0.8-1.2) H 07/20/24 10:35 Specimen Type Arterial 07/20/24 11:11 Sample Site Radial, right 07/20/24 11:11 ABG pH 7.43 (7.35-7.45) 07/20/24 11:11 ABG pCO2 41.9 mmHg (35-45) 07/20/24 11:11 ABG pO2 88.9 mmHg (80.0-100.0) 07/20/24 11:11 ABG PO2/FiO2 Ratio 296 07/20/24 11:11 ABG HCO3 27.6 mmol/L (22-26) H 07/20/24 11:11 ABG Base Excess 2.9 mmol/L (-2.0-2.0) H 07/20/24 11:11 Iwlber Test Pos 07/20/24 11:11 Hematocrit 32.8 % (37-47) L 07/20/24 11:11 Hgb O2 Saturation 96.4 % (95-100) 07/20/24 11:11 Carboxyhemoglobin 1.3 %THgb (0.4-20.1) 07/20/24 11:11 Methemoglobin 0.2 % (0.4-1.5) L 07/20/24 11:11 Total Hemoglobin 10.7 g/dL (12-16) L 07/20/24 11:11 O2 Delivery Device Nc 07/20/24 11:11 O2 Liters/Min 2.5 % 07/20/24 11:11 FiO2 30.0 % 07/20/24 11:11 Courier ID glc 07/20/24 11:11 Sodium 141 mmol/L (136-145) 07/20/24 10:35 Potassium 3.8 mmol/L (3.5-5.1) 07/20/24 10:35 Chloride 105 mmol/L (98-107) 07/20/24 10:35 Carbon Dioxide 25 mmol/L (22-29) 07/20/24 10:35 Anion Gap 14.8 (5-19) 07/20/24 10:35 BUN 19 mg/dL (8-23) 07/20/24 10:35 Creatinine 0.5 mg/dL (0.5-0.9) 07/20/24 10:35 GFR Calculation Not Reportable 07/20/24 10:35 Glucose 101 mg/dL (65-115) 07/20/24 10:35 Calculated Osmolality 294 mOsm/kg (285-295) 07/20/24 10:35 Calcium 8.6 mg/dL (8.5-10.5) 07/20/24 10:35 Magnesium 1.8 mg/dL (1.7-2.3) 07/20/24 10:35 Total Bilirubin 1.0 mg/dL (0.15-1.2) 07/20/24 10:35 AST 55 U/L (0-32) H 07/20/24 10:35 ALT 44 U/L (0-33) H 07/20/24 10:35 Alkaline Phosphatase 61 U/L (35-105) 07/20/24 10:35 NT-Pro-B Natriuret Pep 354 pg/mL (0-450) 07/20/24 10:35 Total Protein 6.8 g/dL (6.6-8.7) 07/20/24 10:35 Albumin 3.5 g/dL (3.5-5.2) 07/20/24 10:35 Globulin 3.3 g/dL (1.3-4.6) 07/20/24 10:35 Influenza A (PCR) Negative (Negative) 07/20/24 11:06 Influenza Type B (PCR) Negative (Negative) 07/20/24 11:06 RSV (PCR) Negative (Negative) 07/20/24 11:06 SARS-CoV-2 (PCR) Positive (Negative) A 07/20/24 11:06 All radiology interpretation(s) finalized by discharge ED provider radiology interpretation(s): X-ray of chest same as previous. CTA of the chest with no obvious main artery PE. See radiology read for further detail. EKG Data EKG 1: I personally reviewed and interpreted this EKG as follows: EKG Interpretation Date: 07/20/24 EKG interpretation time: 10:28 Prior EKG tracings: not available for review Interpretation: Sinus tach, normal axis, normal QTc of 355 and MI interval of 138. Rate is 107. Discharge Plan Discharge Patient Disposition: Home Clinical Impression: COVID-19 Condition: Stable Prescriptions: New Paxlovid 300 mg (150 mg x 2)-100 mg tablets,dose pack See Rx Instructions .ROUTE .COMPLEX Qty: 30 0RF Rx Instructions: take TWO 150 mg tablets of nirmatrelvir with ONE 100 mg tablet of ritonavir twice daily for 5 days No Action furosemide [Lasix] 20 mg tablet 20 mg PO QAM PRN (Reason: Edema) potassium chloride 10 mEq capsule, extended release 10 meq PO .NOON PRN (Reason: take if takes her lasix) prednisone 5 mg tablet 5 mg PO DAILY Qty: 30 3RF folic acid 1 mg tablet 1 mg PO DAILY Qty: 30 3RF methotrexate sodium 2.5 mg tablet 10 mg PO .Q7days Qty: 20 3RF Rx Instructions: take 4 tabs on same day once a week. prednisone 20 mg tablet See Rx Instructions PO .COMPLEX PRN (Reason: joint pain flare) Qty: 30 1RF Rx Instructions: Take 1 or 2 tablets by mouth daily for up to 7 days as needed for arthritis flare. cholecalciferol (vitamin D3) 1,250 mcg (50,000 unit) capsule 50,000 unit PO .once a week Qty: 15 0RF aspirin 81 mg tablet,delayed release (DR/EC) 81 mg PO DAILY Qty: 30 0RF atorvastatin 10 mg tablet 10 mg PO QPM benzonatate 100 mg capsule 100 mg PO TID PRN (Reason: cough) Qty: 30 0RF albuterol sulfate [Ventolin HFA] 90 mcg/actuation HFA aerosol inhaler 1 inh inhalation Q6H PRN (Reason: shortness of breath or wheezing) Qty: 8.5 0RF Eliquis 5 mg tablet 5 mg PO BID Discharge Orders: Discharge ED (Routine); Ordered 07/20/24 Ordered By: Andrae Sharma Referrals: Willi Olsen MD [Primary Care Provider] - Discharge Diet: Advance as tolerated Discharge Activity: Resume usual activity Patient Instructions: COVID-19 (Coronavirus Disease 2019) (ED) Print Language: Lithuanian Coding Level of Care Code ED Epic [facility] for [facility] Fragoso
[2024-07-20 14:58] VITALS: BP 130/79; PULSE 94; O2SAT 97
== END 2024-07-20 15:00 | disposition home or self-care (01) ==
PROVIDERS: Emergency Provider Emergency Medicine; PCP Family Medicine
DX: U07.1 COVID-19 (principal); Z11.52 Encounter for screening for COVID-19; Z79.82 Long term (current) use of aspirin; Z79.01 Long term (current) use of anticoagulants; I10 Essential (primary) hypertension
CPT/HCPCS: 36600; 71045; 71275; 80053; 82805; 83735; 83880; 85025; 85610; 87637; 96360; 96361; 99285; J7120

== ENCOUNTER → 2024-08-30 09:40 | Outpatient (BNVA) | payer OTHER, SELFPAY | PROVIDERS: PCP Family Medicine; Visit Provider Internal Medicine Rheumatology | DX: M13.0 Polyarthritis, unspecified (principal); Z79.899 Other long term (current) drug therapy; Z71.85 Encounter for immunization safety counseling; I26.99 Other pulmonary embolism without acute cor pulmonale; I73.00 Raynaud's syndrome without gangrene | CPT/HCPCS: 99214 ==

== ENCOUNTER → 2024-10-16 10:17 | Outpatient (BNVA) | payer OTHER, SELFPAY | PROVIDERS: PCP Family Medicine; Visit Provider Internal Medicine Cardiovascular Disease | DX: R07.9 Chest pain, unspecified (principal) | CPT/HCPCS: 93005 ==

== ENCOUNTER 2024-11-01 09:38 | Outpatient (CLI) | payer OTHER, SELFPAY ==
[2024-11-01 11:04] LABS: Hematocrit 41.2 % (36-47); Hemoglobin 12.80 g/dL (11.27-16.99); Mean Corpuscular HGB Conc 31.1 g/dL (30-55); Mean Corpuscular Hemoglobin 29.3 pg (27-33); Mean Corpuscular Volume 94.3 fl (85-98); Nucleated Red Blood Cells % 0 %; Platelet Count 260 10^3/cmm (157-399); Red Blood Count 4.37 10^6/uL (3.85-5.65); White Blood Count 12.01 10^3/uL (3.29-11.43)
[2024-11-01 11:27] LABS: Cholesterol 201 mg/dL (0-200); HDL Cholesterol 88 mg/dL (60-100); Triglycerides 89 mg/dL (0-150)
== END 2024-11-01 09:39 | disposition home or self-care (01) ==
LOC: LAB 09:40
PROVIDERS: PCP Family Medicine; Visit Provider Internal Medicine Rheumatology
DX: Z79.899 Other long term (current) drug therapy (principal); M06.9 Rheumatoid arthritis, unspecified; M19.90 Unspecified osteoarthritis, unspecified site
CPT/HCPCS: 36415; 80061; 82565; 85025; 85651; 86140

== ENCOUNTER → 2024-12-20 10:29 | Outpatient (BNVA) | payer OTHER, SELFPAY | PROVIDERS: PCP Family Medicine; Visit Provider Internal Medicine | DX: J44.9 Chronic obstructive pulmonary disease, unspecified (principal); J84.9 Interstitial pulmonary disease, unspecified; J84.10 Pulmonary fibrosis, unspecified; J96.10 Chronic respiratory failure, unspecified whether with hypoxia or hypercapnia; I26.99 Other pulmonary embolism without acute cor pulmonale; Z79.01 Long term (current) use of anticoagulants; Z79.82 Long term (current) use of aspirin; Z99.81 Dependence on supplemental oxygen | CPT/HCPCS: 99204 ==

== ENCOUNTER → 2025-01-16 09:25 | Outpatient (BNVA) | payer MEDICARE, SELFPAY | PROVIDERS: PCP Family Medicine; Visit Provider Internal Medicine Rheumatology | DX: M13.0 Polyarthritis, unspecified (principal); Z79.899 Other long term (current) drug therapy; Z71.85 Encounter for immunization safety counseling; I26.99 Other pulmonary embolism without acute cor pulmonale; I73.00 Raynaud's syndrome without gangrene; J96.11 Chronic respiratory failure with hypoxia | CPT/HCPCS: 99214 ==

== ENCOUNTER 2025-01-18 07:09 | Outpatient (CLI) | payer MEDICARE, SELFPAY ==
--- NOTE | 2025-01-18 07:15 | CTR_ITS ---
PROCEDURE INFORMATION: Exam: CT Chest Without Contrast, Diagnostic, High Resolution Exam date and time: 01/18/2025 7:49 AM Age: 79 years old Clinical indication: Condition or disease; Lung condition and disease; Other: Pulmonary infiltrates TECHNIQUE: Imaging protocol: Diagnostic computed tomography of the chest without contrast. Exam was performed with high resolution protocol. Radiation optimization: All CT scans at this facility use at least one of these dose optimization techniques: automated exposure control; mA and/or kV adjustment per patient size (includes targeted exams where dose is matched to clinical indication); or iterative reconstruction. COMPARISON: CT angio chest PE protcl [id number] 07/20/2024 12:11 PM RADIATION DOSE METRICS: Total DLP (mGy-cm): 156.53 FINDINGS: Lungs: Extensive chronic bronchiectatic changes in the bilateral into lesser extent in the posterior aspect of the right middle lobe. Scattered ill-defined ground-glass opacities in the bilateral lower lobes and to a lesser extent the right middle lobe and lingular adjacent to the aforementioned bronchiectatic changes, likely secondary to chronic fibrosis. No lobar consolidation. Pleural spaces: No pleural effusions or pneumothorax. Heart: Mild cardiomegaly. No pericardial effusions. Vasculature: Unremarkable. No aortic aneurysm. Lymph nodes: Calcified mediastinal and bilateral hilar lymph nodes suggestive of sequelae of old/chronic granulomatous disease. Shotty pretracheal lymph nodes, likely reactive. Gallbladder and biliary ducts: Surgically absent gallbladder. Bones/joints: No significant focal osseous lesions. No fractures or malalignment. Soft tissues: Unremarkable. Other findings: Calcified granulomas in the bilateral lobes. CT/CT chest w/o HI-Res(Pulm Only) IMPRESSION: 1. Extensive chronic bronchiectatic changes in the bilateral into lesser extent in the posterior aspect of the right middle lobe. 2. Scattered ill-defined ground-glass opacities in the bilateral lower lobes and to a lesser extent the right middle lobe and lingular adjacent to the aforementioned bronchiectatic changes, likely secondary to chronic fibrosis. 3. No lobar consolidation or definite acute infiltrates. 4. Mild cardiomegaly. 5. Calcified mediastinal and bilateral hilar lymph nodes suggestive of sequelae of old/chronic granulomatous disease. 6. Shotty pretracheal lymph nodes, likely reactive.
== END 2025-01-18 07:10 | disposition home or self-care (01) ==
LOC: RAD 07:13
PROVIDERS: PCP Family Medicine; Visit Provider Internal Medicine
DX: J84.9 Interstitial pulmonary disease, unspecified (principal); J96.10 Chronic respiratory failure, unspecified whether with hypoxia or hypercapnia; J84.10 Pulmonary fibrosis, unspecified; J44.9 Chronic obstructive pulmonary disease, unspecified; J98.4 Other disorders of lung; R91.8 Other nonspecific abnormal finding of lung field; J47.9 Bronchiectasis, uncomplicated; J84.89 Other specified interstitial pulmonary diseases; I51.7 Cardiomegaly; I89.8 Other specified noninfective disorders of lymphatic vessels and lymph nodes
CPT/HCPCS: 71250

== ENCOUNTER → 2025-01-24 13:45 | Outpatient (BNVA) | payer MEDICARE, SELFPAY | PROVIDERS: PCP Family Medicine; Visit Provider Internal Medicine | DX: J44.9 Chronic obstructive pulmonary disease, unspecified (principal); J84.10 Pulmonary fibrosis, unspecified; J98.4 Other disorders of lung; J96.10 Chronic respiratory failure, unspecified whether with hypoxia or hypercapnia; Z99.81 Dependence on supplemental oxygen; I73.00 Raynaud's syndrome without gangrene; M13.0 Polyarthritis, unspecified; M06.9 Rheumatoid arthritis, unspecified; Z71.85 Encounter for immunization safety counseling; Z79.899 Other long term (current) drug therapy; Z79.82 Long term (current) use of aspirin; Z86.711 Personal history of pulmonary embolism | CPT/HCPCS: 99214; Q3014 ==

== ENCOUNTER 2025-02-20 09:39 | Day surgery (SDC) | payer MEDICARE, SELFPAY ==
[2025-02-20] VITALS (8 sets, daily range): BP systolic 114–154; BP diastolic 64–82; PULSE 74–81; RESP 16–18; TEMP 36.1–36.6; O2SAT 95–99; BMI 26.5
[2025-02-20 10:30] LABS: Hematocrit 44.5 % (36-47); Hemoglobin 14.10 g/dL (11.27-16.99); Mean Corpuscular HGB Conc 31.7 g/dL (30-55); Mean Corpuscular Hemoglobin 30.0 pg (27-33); Mean Corpuscular Volume 94.7 fl (85-98); Nucleated Red Blood Cells % 0 %; Platelet Count 251 10^3/cmm (157-399); Red Blood Count 4.70 10^6/uL (3.85-5.65); White Blood Count 9.69 10^3/uL (3.29-11.43)
--- NOTE | 2025-02-20 10:41 | W.PM.OPSUD ---
Surgery/Procedure H&P Update DATE OF PROCEDURE: February 20, 2025 Surgery/Procedure H&P Update DATE OF PROCEDURE:02/20/2025 DATE H&P PERFORMED: 01/24/2025 CHANGES TO PREVIOUS DOCUMENTATION: Patient was seen and examined. No significant changes since I saw in the clinic. We will proceed with bronchoscopy as we planned. PREOP DIAGNOSIS: Bilateral lower lobe infiltrates PRIMARY INDICATION FOR PROCEDURE: Rule out malignancy and infections PLANNED PROCEDURE: Operation Date: 01/30/2025 10 am Proposed Procedures; Bronchoalveolar lavage and brushings Operation Date: 01/30/25 09:00 Proposed Procedures p Bronchoscopy [id number] R91. - Moe Mercedes MD DATE H&P PERFORMED: 01/24/25 H&P UPDATE INFORMATION: I have reviewed H&P completed within last 30 days, I have examined patient prior to procedure, No changes to prior documentation, Changes to prior documentation as noted here, H&P to be scanned into chart, H&P is in [facility] EMR on date indicated and Risks and benefits of the procedure reviewed PLANNED PROCEDURE: Operation Date: 02/20/25 11:30 Proposed Procedures p Bronchoscopy with Lavage -Bronch with BAL-(Not Applicable) - Moe Mercedes MD
[2025-02-20 10:42] LABS: INR 0.88 (0.8-1.2); Prothrombin Time 12.60 SECONDS (12.1-14.9)
--- NOTE | 2025-02-20 10:50 | ANES.PREANE2 ---
Pre-Anesthetic Assessment Height/Weight: Height 1.6 m Weight 68.039 kg Temp Pulse Resp BP Pulse Ox O2 Del Method O2 Flow Rate 97 F L 75 18 130/78 95 Nasal Cannula 3 02/20/25 11:32 02/20/25 11:51 02/20/25 11:51 02/20/25 11:51 02/20/25 11:51 02/20/25 11:51 02/20/25 11:51 Operation Date: 02/20/25 11:30 Proposed Procedures p Bronchoscopy with Lavage -Bronch with BAL-(Not Applicable) - Moe Mercedes MD Familial anesthetic complications: none Was Beta Drake taken within 24 hours: Yes Was Clonidine taken within 24 hours: N/A Last intake: Intake Last Liquid Date 02/19/25 Last Liquid Time 18:00 Last Solid Date 02/19/25 Last Solid Time 16:30 Social No alcohol and No tobacco Exam alert, oriented x 3, clear to auscultation bilaterally and regular rate & rhythm Pulmonary Chronic Obstructive Pulmonary Disease CV/HEM Arrythmia and Hypertension Neuropsych FREDDIE Anesthetic Plan ASA status: 3 Anesthesia: General Risk of > 500 ml blood loss (7ml/kg in children): No Medications/Allergies Home Medications ?Medication ?Instructions ?Recorded ?Confirmed ?Last Taken ?Type aspirin 81 mg tablet,delayed 81 mg PO DAILY #30 tabs 05/13/24 02/18/25 02/18/25 Rx release atorvastatin 10 mg tablet 10 mg PO QPM 05/31/24 02/18/25 02/19/25 History albuterol sulfate 90 mcg/actuation 1 inh inhalation Q6H PRN shortness 06/09/24 02/20/25 1 Month Ago Rx aerosol inhaler (Ventolin HFA) of breath or wheezing #8.5 grams ~01/20/25 furosemide 20 mg tablet (Lasix) 20 mg PO QAM PRN Edema 07/17/24 02/18/25 02/19/25 History potassium chloride 10 mEq 10 meq PO .NOON PRN take if takes 07/17/24 02/18/25 02/19/25 History capsule,extended release her lasix metoprolol succinate 25 mg 12.5 mg (1/2 x 25 mg) PO DAILY #45 10/16/24 02/20/25 02/20/25 07:00 Rx tablet,extended release 24 hr tabs ondansetron HCl 4 mg tablet 4 mg PO Q8H PRN nausea and 11/14/24 02/20/25 1 Month Ago Rx vomiting #30 tabs ~01/20/25 cholecalciferol (vitamin D3) 50 50 mcg PO DAILY 01/16/25 02/18/25 02/19/25 History mcg (2,000 unit) capsule prednisone 20 mg tablet See Rx Instructions PO .COMPLEX 01/16/25 02/18/25 02/14/25 Rx PRN joint pain flare #30 tabs prednisone 5 mg tablet 5 mg PO DAILY #90 tabs 01/16/25 02/18/25 02/19/25 Rx Allergies Allergy/AdvReac Type Severity Reaction Status Date / Time codeine Allergy ADR-Vomitin Verified 02/20/25 10:07 g sulfasalazine AdvReac Intermediate ADR-Gastrointestinal Verified 02/20/25 10:07 Upset Current Medications Generic Name Dose Route Start Last Admin Trade Name Freq PRN Reason Stop Dose Admin Sodium Chloride 1,000 mls @ 15 mls/hr 02/20/25 09:52 02/20/25 10:19 Sodium Chloride 0.9% IV 02/21/25 09:51 15 mls/hr .Q24H PRN Administration COLONOSCOPY FLUIDS PFSH Anesthesia Medical History Interstitial lung disease Chronic respiratory failure Immunization counseling High risk medication use Polyarthritis Raynaud's disease History of hypertension Surgical History History of hysterectomy with bilateral oophorectomy History of cholecystectomy Family History Other Cancer Chronic kidney disease (CKD) Diabetes Heart disease Hypertension Migraines Rheumatoid arthritis Stroke Denies family history of Lupus (systemic lupus erythematosus) Social History Smoking and tobacco/nicotine status: never used tobacco/nicotine Alcohol intake: never Substance/Drug Use: never Data Anesthesia 02/20/25 10:14 Short CBC 02/20/25 Range/Units 10:14 WBC 9.69 (3.29-11.43) 10^3/uL Hgb 14.10 (11.27-16.99) g/dL Hct 44.5 (36-47) % MCV 94.7 (85-98) fl Plt Count 251 (157-399) 10^3/cmm Neut % (Auto) 73.6 % Neut # (Auto) 7.13 (1.8-7.7) 10^3/uL Coags 02/20/25 10:14 PT 12.60 INR 0.88 Cardiac Studies: Echocardiogram 05/31/24
--- NOTE | 2025-02-20 11:25 | P.OP_ITS ---
Procedure: Flexible bronchoscopy Attending: Moe Mercedes MD Indication: Bilateral lower lobe infiltrates and bronchiectasis Anesthesia: General anesthesia per anesthesia team Procedure: Pre-Anesthesia Assessment [place] Protocol: Pre-procedure Verification: Prior to the procedure, the patient's identity was confirmed using full name, date of , and medical record number. Identity verification included a review of all relevant medical records, history, physical examination, medications, allergies, and previous anesthesia tolerance. Risks, benefits, sedation options, and associated risks were reviewed with the patient, and informed consent was obtained after addressing all questions. Time-Out: Immediately before the procedure, a time-out was conducted to confirm patient identification, procedure details, consent, image labeling, and the need for prophylactic antibiotics. This was verified by the physician, nurse, anesthesiologist, and school psychological examiner. Outcome: The procedure was completed without difficulty, and the patient tolerated it well. Findings: A thorough airway exam was performed after passage of the bronchoscope. The trachea was anatomically normal. The right sided airway was anatomically normal without endobronchial lesions. No secretions. The left sided airway was anatomically normal without endobronchial lesions. No secretions. Prior to sampling, confirmation of lesion location was done using: Distal airways were all found to be tortous with some secretions pooling due to bronchiectasis After confirming our location, we proceeded to sampling. Endobronchial brushings performed down the airway towards the lesion. A total of 2 brushings were obtained. ([id number]) For micro and cytology A bronchoalveolar lavage was performed of the lobe containing the target lesion with 100mL of saline instilled and 40 mL of effluent returned. ([id number]) [place] Bleeding Scale Grade 1: Suctioning <1 minute. Bleeding of no clinical consequence to patient or provider. Following completion of all diagnostic and therapeutic procedures, hemostasis was verified. The scope was removed and procedure concluded. In summary, the following procedures were performed: [id number] [place] (Endobronchial Brushing(s)), [id number] BAL, (Bronchoalveolar Lavage), Moe Mercedes MD Pulmonary and Critical Care
--- NOTE | 2025-02-20 12:12 | PC.NURSE ---
25mL fluid sent to lab for BAL
[2025-02-20 12:41] LABS: Cyto Order Verification Order Verified
--- NOTE | 2025-02-20 12:43 | ANE.PACU2 ---
Inpatient post-anesthesia follow up: Airway intact: Yes Vital signs: Temperature 97.4 F Pulse Rate 78 Respiratory Rate 16 Blood Pressure 131/70 Pulse Oximetry 98 Oxygen Delivery Me thod Nasal Cannula Oxygen Flow Rate 3 Fraction of Inspir ed Oxygen Hydration adequate: Yes Nausea and vomiting: No Pain level: 1 Mental status: Baseline
[2025-02-22 16:34] LABS: P. Jirovecii DNA QL PCR Not Detected (Not Detected); P. Jirovecii DNA QL PCR Source Results Below
[2025-02-22 17:44] LABS: Aspergillus AG,EIA NOT DETECTED; Aspergillus AG,EIA, Index <0.50
[2025-02-26 13:24] LABS: Histoplasma Antigen (Quant) None Detected; Histoplasma Antigen Interpreta NEGATIVE; Histoplasma Antigen Specimen LAVAGE,BRONCHIAL
== END 2025-02-20 12:31 | disposition home or self-care (01) ==
PROVIDERS: PCP Family Medicine; Visit Provider Internal Medicine
PROC: (CPT 31624; principal; 2025-02-20 11:20)
DX: J47.9 Bronchiectasis, uncomplicated (principal); R91.8 Other nonspecific abnormal finding of lung field; I49.9 Cardiac arrhythmia, unspecified; I10 Essential (primary) hypertension; Z79.82 Long term (current) use of aspirin
CPT/HCPCS: 31623; 31624; 36415; 85025; 85610; 87015; 87070; 87102; 87116; 87205; 87206; 87305; 87385; 87798; 87801; 88112; 88305; A9270; J0330; J2405; J2704; J3010; J7030; J9999

== ENCOUNTER → 2025-02-26 10:55 | Outpatient (BNVA) | payer MEDICARE, SELFPAY | PROVIDERS: PCP Family Medicine; Visit Provider Internal Medicine | DX: J47.9 Bronchiectasis, uncomplicated (principal); J96.10 Chronic respiratory failure, unspecified whether with hypoxia or hypercapnia; Z99.81 Dependence on supplemental oxygen; J84.10 Pulmonary fibrosis, unspecified; J84.9 Interstitial pulmonary disease, unspecified; I73.00 Raynaud's syndrome without gangrene; M06.9 Rheumatoid arthritis, unspecified; Z71.85 Encounter for immunization safety counseling; Z79.899 Other long term (current) drug therapy; Z79.82 Long term (current) use of aspirin; Z86.711 Personal history of pulmonary embolism | CPT/HCPCS: 99214; Q3014 ==

== ENCOUNTER 2025-03-08 09:51 | Outpatient (CLI) | payer MEDICARE, SELFPAY ==
[2025-03-08 10:19] LABS: Hematocrit 43.0 % (36-47); Hemoglobin 13.80 g/dL (11.27-16.99); Mean Corpuscular HGB Conc 32.1 g/dL (30-55); Mean Corpuscular Hemoglobin 30.9 pg (27-33); Mean Corpuscular Volume 96.4 fl (85-98); Nucleated Red Blood Cells % 0 %; Platelet Count 263 10^3/cmm (157-399); Red Blood Count 4.46 10^6/uL (3.85-5.65); White Blood Count 9.01 10^3/uL (3.29-11.43)
[2025-03-08 10:41] LABS: Alanine Aminotransferase 18 U/L (0-33); Albumin Level 4.1 g/dL (3.5-5.2); Alkaline Phosphatase 68 U/L (35-105); Aspartate Amino Transferase 21 U/L (0-32); Globulin 3.0 g/dL (1.3-4.6); Total Protein 7.1 g/dL (6.6-8.7)
== END 2025-03-08 09:52 | disposition home or self-care (01) ==
LOC: LAB 09:52
PROVIDERS: PCP Family Medicine; Visit Provider Internal Medicine Rheumatology
DX: Z79.899 Other long term (current) drug therapy (principal)
CPT/HCPCS: 36415; 80076; 82565; 82657; 85025; 85651; 86140

== ENCOUNTER 2025-03-19 07:28 | Outpatient (CLI) | payer MEDICARE, SELFPAY | END 2025-03-19 07:29 | disposition home or self-care (01) | LOC: RT 07:30 | PROVIDERS: PCP Family Medicine; Visit Provider Internal Medicine | DX: J84.10 Pulmonary fibrosis, unspecified (principal); J96.10 Chronic respiratory failure, unspecified whether with hypoxia or hypercapnia; J44.9 Chronic obstructive pulmonary disease, unspecified | CPT/HCPCS: 94010; 94618; 94726; 94729 ==